=== PATIENT | male | born 1945 | race Caucasian/White ===

== ENCOUNTER 2021-09-24 08:12 | Outpatient (REF) | payer MEDICARE, SELFPAY | END 2021-09-24 08:13 | disposition home or self-care (01) | LOC: HO.HOSX 08:12 | PROVIDERS: Visit Provider Physician Assistant | DX: Z13.89 Encounter for screening for other disorder (principal) ==

== ENCOUNTER → 2021-12-01 10:48 | Outpatient (BNVA) | payer MEDICARE, MEDICAID, SELFPAY | PROVIDERS: PCP Family Medicine; Visit Provider Urology | DX: C61 Malignant neoplasm of prostate (principal); N35.919 Unspecified urethral stricture, male, unspecified site; N40.1 Benign prostatic hyperplasia with lower urinary tract symptoms; N13.8 Other obstructive and reflux uropathy; R33.8 Other retention of urine | CPT/HCPCS: 99212 ==

== ENCOUNTER 2021-12-04 08:41 | Outpatient (REF) | payer MEDICARE, MEDICAID, SELFPAY ==
[2021-12-04 10:09] LABS: Prostate Specific Antigen 0.35 ng/mL (<0.05-4.0)
== END 2021-12-04 08:42 | disposition home or self-care (01) ==
LOC: HO.LAB 08:41
PROVIDERS: PCP Family Medicine; Visit Provider Urology
DX: Z12.5 Encounter for screening for malignant neoplasm of prostate (principal); C61 Malignant neoplasm of prostate
CPT/HCPCS: 36415; 84153

== ENCOUNTER 2022-04-14 07:44 | Outpatient (REF) | payer MEDICARE, OTHER, SELFPAY ==
--- NOTE | ~2022-04-14 | CT_ITS ---
EXAMINATION: CT ABDOMEN AND PELVIS WITH CONTRAST CLINICAL INFORMATION: Unintentional weight loss COMPARISON: Abdominal ultrasound February 2013 TECHNIQUE: Multidetector volumetric images were obtained from the superior aspect of the liver through the pubic symphysis following administration 85 mL of Omnipaque 350 intravenous contrast. Sagittal and coronal reformatted images were obtained on the technologist's workstation. Oral contrast: Yes This CT examination was performed using dose optimization techniques as appropriate, variously including the following: *Automated exposure control *Adjustment of mA and/or kV according to patient size (this includes techniques or standardized protocols for targeted exams where dose is matched to indication/reason for exam; i.e. extremities or head) *Use of iterative reconstruction technique DLP: 579 mGy-cm FINDINGS: LUNG BASES: The visualized lung bases are unremarkable. LIVER, GALLBLADDER, AND BILIARY TREE: The liver is normal in size, shape, and attenuation. No focal hepatic lesion or biliary ductal dilatation is present. There are small gallstones in the gallbladder. PANCREAS: Unremarkable. SPLEEN: Unremarkable. ADRENAL GLANDS: Unremarkable. KIDNEYS AND URETERS: The kidneys are normal in size, shape, and attenuation. Small bilateral peripelvic cysts, left greater than right. Small bilateral cortical cysts. No imaging follow-up recommended. No hydronephrosis, hydroureter, or calculi seen. No perinephric stranding. BLADDER: Unremarkable. GASTROINTESTINAL TRACT: Stool throughout the colon. Very mild diverticulosis. No evidence of diverticulitis. Normal stomach and small bowel. Appendix not seen. ABDOMINAL WALL: Small left inguinal hernia containing fat. LYMPH NODES: Normal. VASCULAR: Unremarkable. PELVIC VISCERA: The prostate gland has been removed. OSSEOUS STRUCTURES: Scoliosis and mild degenerative changes of the spine. Bilateral L5 pars defect. CT/CT abdomen pelvis w IV con IMPRESSION: No acute findings. Stool throughout the colon questionable for constipation. Small gallstone. Bilateral renal cysts. Post prostatectomy. Fleischner guidelines were followed.
--- NOTE | ~2022-04-14 | CT_ITS ---
EXAMINATION: CT CHEST WITH CONTRAST CLINICAL INFORMATION: Unintentional weight loss COMPARISON: Previous chest x-ray October 2017 TECHNIQUE: Multidetector volumetric CT imaging of the chest was obtained after the administration of 85 mL of Omnipaque 350 intravenous contrast without immediate adverse reactions. Axial MIP volume rendering provided. Sagittal and coronal reformatted images were obtained. This CT examination was performed using dose optimization techniques as appropriate, variously including the following: *Automated exposure control *Adjustment of mA and/or kV according to patient size (this includes techniques or standardized protocols for targeted exams where dose is matched to indication/reason for exam; i.e. extremities or head) *Use of iterative reconstruction technique DLP: 141 mGy-cm FINDINGS: LUNGS: There is focal bronchiectasis seen in the right middle lobe. The lungs are otherwise clear. MEDIASTINUM: Normal heart size. Mild coronary artery calcification. No pericardial effusion. Left subclavian pacemaker/AICD leads. Normal caliber thoracic aorta. No enlarged hilar or mediastinal lymph nodes. Normal esophagus. PLEURA: There is no pleural effusion. No pleural mass or thickening. AXILLA: No lymphadenopathy. OSSEOUS STRUCTURES: Degenerative changes of the spine. CT/CT chest w IV con IMPRESSION: Focal bronchiectasis in the right middle lobe. Mild coronary artery calcification. Fleischner guidelines were followed.
[2022-04-14] MEDS: iohexoL 350 MG/ML 100 ML INFUS..BTL IV (10:44)
[2022-04-14] MEDS: Barium Sulfate Oral (Berry) 450 ML ORAL.SUSP 900 ML PO (10:44)
[2022-04-14 14:25] LABS: Creatinine POC 1.4 mg/dL (0.5-1.4); GFR POC 51
== END 2022-04-14 07:45 | disposition home or self-care (01) ==
LOC: HO.CT 07:44
PROVIDERS: Visit Provider Family Medicine
DX: R63.4 Abnormal weight loss (principal)
CPT/HCPCS: 71260; 74177; 82565; Q9967

== ENCOUNTER 2022-07-07 10:03 | Outpatient (REF) | payer MEDICARE, OTHER, SELFPAY ==
--- NOTE | ~2022-07-07 | XR_ITS ---
EXAMINATION: XR CHEST CLINICAL INFORMATION: Focal bronchiectasis right middle lobe. COMPARISON: CT chest 08/12/2022, chest radiographs 11/04/2017 TECHNIQUE: 2 views of the chest were obtained. FINDINGS: There is subtle coarsening interstitial markings mid to peripheral right mid zone corresponding to the area of focal bronchiectasis noted on CT chest 04/14/2022. There is no interval airspace consolidation or groundglass opacity. No fluid levels. No pleural reaction or effusion. The heart is normal in size. There is a bipolar pacemaker. The vascularity is normal. The hilar and mediastinal contours are unremarkable. There are degenerative changes thoracic spine. XR/XR chest 2V IMPRESSION: -No acute intrathoracic disease. -Bipolar pacemaker. Vascularity normal. No effusion. -Mild coarsening right mid zone corresponding to area of bronchiectasis noted on prior CT.
== END 2022-07-07 10:04 | disposition home or self-care (01) ==
LOC: HO.HHCX 10:03
PROVIDERS: Visit Provider Family Medicine
DX: J47.9 Bronchiectasis, uncomplicated (principal)
CPT/HCPCS: 71046

== ENCOUNTER 2022-10-19 10:35 | Outpatient (AMB) | payer MEDICARE, MEDICAID, SELFPAY ==
[2022-10-19 10:53] VITALS: BP 124/60; PULSE 59; O2SAT 98; BMI 26.4
--- NOTE | 2022-10-19 10:53 | MHC.OFFVIS ---
Intake Vital Signs 10/19/22 10:53 Height 5 ft 7 in Weight 168 lb 10.458 oz BMI 26.4 BP 124/60 Blood Pressure Location Lt brachial Position Sitting Pulse 59 Pulse Source Pulse Oximeter Pulse Oximetry (%) 98 Oxygen Delivery Method Room Air Intake Visit Reasons: Bronchiectasis Ammonia Technician Required: No Allergies No Known Allergies Allergy (Verified 10/19/22 10:56) HPI HPI Comments History of Present Illness Details The patient is here for pulmonary evaluation. The patient is a 76-year-old gentleman with a known history of prostate cancer along with significant weight loss. Back in March the patient did have a workup for the significant weight loss with a CT scan of the chest and abdomen. It was noted that he has significant bronchiectatic changes and scarring of the right middle lobe area. Therefore additional laboratory testing was done. Since that initial evaluation back in March he states that he has gained some weight back. He went down to about 144 and now he is up to 168 lb. Clinically the patient feels good denies any significant cough or shortness of breath. As far as exposures she worked in the [employer] for about 24 years. This is in the [place] He was exposed to significant amount of insecticides and pesticides. He also states that he drinks alcohol on daily basis. He is no longer drinking he quit drinking about 2 years ago and has been clean ever since. I did review the CT scan demonstrating the atelectatic area I am bronchiectatic area primarily in the right middle lobe area. The airways appeared to be patent without any endobronchial lesions. On examination he does have some crackles that are fine to the right lower lobe area suggesting some degree of chronicity. Based on the fact the patient clinically feeling well will plan to repeat the CT scan in 6 months along with pulmonary function studies. If the patient develops any symptoms prior to this or worsening symptoms he will call the office for an earlier assessment. [facility] Medical History (Updated 10/19/22 @ 12:04 by Martin Norris MD) Bronchiectasis Chronic renal failure Hepatitis HTN (hypertension) Hyperlipidemia ILD (interstitial lung disease) Prostate cancer Urethral stricture Vitamin B12 deficiency Surgical History History of surgery Social History (Updated 10/19/22 @ 10:57 by SARA Stokes) Patient Tobacco Use Status: Never used Tobacco Review of Systems Const Denies fatigue, Denies fever(s), Denies malaise and Reports weight gain Eyes Denies change in vision ENT Denies neck pain Card Denies chest pain Resp Denies change in phlegm color, Denies chest congestion, Denies cough, Denies hemoptysis, Denies excessive phlegm production, Denies pain on inspiration, Denies pain with cough and Denies wheezing GI Reports no additional complaints Musc Reports no additional complaints and Denies neck pain Skin/Breast Denies rash Neuro Reports no additional complaints Endo Denies fatigue Jesus Alberto/Lymph Denies easy bleeding and Denies lymphadenopathy Aller/Immun Denies wheezing Physical Exam Vital Signs: Last Vital Signs Pulse 59 10/19/22 10:53 BP 124/60 10/19/22 10:53 Pulse Ox 98 10/19/22 10:53 Oxygen Delivery Method Room Air 10/19/22 10:53 BMI result Body Mass Index 26.4 Const General: comfortable HEENT Head: Yes normocephalic Neck Neck: Yes supple Chest Chest palpation & inspection: normal inspection of the chest Resp Effort & Inspection: normal respiratory effort Auscultation: rales on the right at the base Cardio Rate: regular rate Rhythm: regular rhythm Heart sounds: S1 normal heart sound present and S2 normal heart sound present GI Palpation (GI): Soft to palpation Skin General skin exam: no rashes or lesions noted Extrem General: Yes no clubbing, cyanosis or edema Assessment & Plan Assessment & Plan (1) Bronchiectasis: Code(s): J47.9 - Bronchiectasis, uncomplicated (2) ILD (interstitial lung disease): Code(s): J84.9 - Interstitial pulmonary disease, unspecified Plan PFTs in [address] chest in 6 months F/U in 6 months Orders: Orders CT chest wo IV con 6 Months J47.9 - Bronchiectasis, uncomplicated, J84.9 - Interstitial pulmonary disease, unspecified PFT pulmonary function test 6 Months J84.9 - Interstitial pulmonary disease, unspecified Coding Level of Care Code New Pt Level 4 (02025) Diagnoses Bronchiectasis J47.9 ILD (interstitial lung disease) J84.9 Time Spent (min) 35
== END 2022-10-19 11:17 | disposition home or self-care (01) ==
PROVIDERS: PCP Family Medicine; Visit Provider Hospitalist
DX: J47.9 Bronchiectasis, uncomplicated (principal); J84.9 Interstitial pulmonary disease, unspecified
CPT/HCPCS: 99204

== ENCOUNTER → 2022-10-19 10:35 | Outpatient (BNVA) | payer MEDICARE, OTHER, SELFPAY | PROVIDERS: PCP Family Medicine; Visit Provider Hospitalist | DX: J47.9 Bronchiectasis, uncomplicated (principal); J84.9 Interstitial pulmonary disease, unspecified | CPT/HCPCS: 99202 ==

== ENCOUNTER 2023-01-03 09:14 | Outpatient (REF) | payer MEDICARE, MEDICAID, SELFPAY | END 2023-01-03 09:15 | disposition home or self-care (01) | LOC: HO.LAB 09:14 | PROVIDERS: PCP Family Medicine; Visit Provider Nurse Practitioner Family | DX: C61 Malignant neoplasm of prostate (principal); Z12.5 Encounter for screening for malignant neoplasm of prostate | CPT/HCPCS: 36415; 84153 ==

== ENCOUNTER 2023-01-11 10:14 | Outpatient (AMB) | payer MEDICARE, MEDICAID, SELFPAY ==
--- NOTE | 2023-01-11 10:28 | A.OFFVIS_ITS ---
Intake Intake Visit Reasons: yearly follow up/PSA Intake Note: Patient presents for Hx of Prostate cancer/PSA lab (psa 0.40) Urology Medications: finasteride Blood Thinners: Aspirin, Apixaban (Eliquis) Rubber Boots And Shoes Repairer Required: Yes Rubber Boots And Shoes Repairer Name: [id number] Accompanied by: Self / Same As Patient Allergies No Known Allergies Allergy (Verified 01/11/23 11:12) Medication List - Last Reconciled 01/11/23 by SEJAL AguilarP- amlodipine 10 mg PO DAILY apixaban (Eliquis) 5 mg PO BID aspirin 81 mg PO DAILY atorvastatin 20 mg PO BEDTIME cholecalciferol (vitamin D3) 25 mcg PO DAILY cyanocobalamin (vitamin B-12) 1,000 mcg PO DAILY diclofenac sodium 1% 2 grams topical BID PRN ferrous sulfate 325 mg PO DAILY finasteride 5 mg PO DAILY 90 days lisinopril 40 mg PO DAILY timolol maleate 0.5% 1 drp ophthalmic (eye) QAM HPI HPI Comments History of Present Illness Details Tomi is a very pleasant Macedonian speaking male patient of Dr. Bobby. He has a PMH of interstitial lung disease, vitamin b12 deficiency, chronic renal failure, hepatitis, hypertension, and hyperlipidemia. He presents to the office today for a follow up of his prostate cancer and urethral stricture s/p [id number]. When asked patient reports to be doing and feeling well. He denies any issues with his urination. Recent PSA results reviewed with the patient today 01/20--0.4. When asked he reports to have stopped Finasteride as he did not have any more refills. In office urinalysis results reviewed with the patient today. When asked he denies urinary urgency, urinary frequency, incontinence, nocturia, hematuria, dysuria, foul smelling urine, changes to urinary stream, flank pain, fever, and or chills. He is happy with his current voiding parameters. He otherwise denies any bothersome urinary issues or concerns at this time. Prostate cancer diagnosed 2007 low-grade ? Good response to prior finasteride ?If PSA to rise would then again consider radiation. ? Prostate cancer was diagnosed?2007. Low-grade, low stage D'Shara criteria..? The Dennise grade is?3+3.? TNM Classification of Malignant Tumours (TNM)?T1c.? Initial therapy included?Radical prostatectomy .? Recent labs included?07/16 0.2 ?11/16 0.15, 03/19 0.1, 12/19 0.4, 01/20--0.4 ? Current symptoms include?none PFSH Medical History ILD (interstitial lung disease) Bronchiectasis Vitamin B12 deficiency Chronic renal failure Hepatitis HTN (hypertension) Hyperlipidemia Urethral stricture Prostate cancer Surgical History History of surgery Social History Patient Tobacco Use Status: Never used Tobacco Review of Systems Const All systems reviewed & are unremarkable except as noted in HPI and below Eyes Reports no additional complaints ENT Reports no additional complaints Card Reports as per HPI Resp Reports as per HPI GI Reports no additional complaints Reports as per HPI Musc Reports no additional complaints Neuro Reports no additional complaints Psych Reports no additional complaints Endo Reports no additional complaints Jesus Alberto/Lymph Reports no additional complaints Aller/Immun Reports no additional complaints Physical Exam Const General: cooperative, healthy appearing, comfortable, no acute distress, well developed, alert and awake Orientation/consciousness: patient oriented x3 Limitations: no limitations HEENT Head: Yes normal to inspection, Yes normocephalic and Yes atraumatic Ears: hearing grossly normal bilaterally Eyes General: appearance normal, both eyes and all related structures Neck Neck: Yes normal visual inspection and Yes trachea midline Chest Chest palpation & inspection: normal inspection of the chest Resp Effort & Inspection: normal respiratory effort and able to speak in complete sentences Cardio Rate: regular rate GI Inspection: Yes normal to inspection General: Yes no CVA tenderness Back/Spine/Pelvis Back: no CVA tenderness Skin General skin exam: no rashes or lesions noted Neuro General: patient oriented x3 Extrem General: Yes normal to inspection Psych Appearance: grossly normal and well kempt Mental Status: mental status grossly normal Speech and movement: Normal speech and movement present and Clear speech present Affect: normal affect Attitude: cooperative Thought process: Normal thought process present Thought content: Normal thought content present Insight: Fair insight present (Psych) Judgement: Fair judgement present (Psych) Results AMB Urinalysis, Automated UA Leukoctes 0 Alvaro/uL Last Edit by Lolita Alcaraz on 01/11/23 10:40 UA Nitrite Negative Last Edit by Lolita Alcaraz on 01/11/23 10:40 UA Urobilinogen 0.2 mg/dL Last Edit by Lolita Alcaraz on 01/11/23 10:40 UA Protein 0 mg/dL Last Edit by Lolita Alcaraz on 01/11/23 10:40 UA pH 5.5 Last Edit by Lolita Alcaraz on 01/11/23 10:40 UA Blood 0 Rolf/uL Last Edit by Lolita Alcaraz on 01/11/23 10:40 UA Specific [place] 1.025 Last Edit by Lolita Alcaraz on 01/11/23 10:40 UA Ketone Negative Last Edit by Lolita Alcaraz on 01/11/23 10:40 UA Bilirubin 0 mg/dL Last Edit by Lolita Alcaraz on 01/11/23 10:40 UA Glucose 0 mg/dL Last Edit by Lolita Alcaraz on 01/11/23 10:40 Results Reviewed Results Reviewed: Laboratory Last Values Urine pH (Auto) 5.5 01/11/23 10:34 Specific [place] (Auto) 1.025 01/11/23 10:34 Urine Protein (Auto) 0 mg/dL 01/11/23 10:34 Glucose (UA)(Auto) 0 mg/dL 01/11/23 10:34 Urine Ketones (Auto) Negative 01/11/23 10:34 Urine Blood (Auto) 0 Rolf/uL 01/11/23 10:34 Urine Nitrite (Auto) Negative 01/11/23 10:34 Urine Bilirubin (Auto) 0 mg/dL 01/11/23 10:34 Urine Urobilinogen (Auto) 0.2 mg/dL 01/11/23 10:34 Leukocyte Esterase (Auto) 0 Alvaro/uL 01/11/23 10:34 Assessment & Plan Assessment & Plan (1) Prostate cancer: Code(s): C61 - Malignant neoplasm of prostate (2) Urethral stricture: Code(s): N35.919 - Unspecified urethral stricture, male, unspecified site (3) Rising PSA following treatment for malignant neoplasm of prostate: Code(s): R97.21 - Rising PSA following treatment for malignant neoplasm of prostate Plan In office urinalysis results reviewed with the patient today; as noted above. Recent PSA results reviewed with the patient today; as noted above. Discussed slight increase in PSA Refill provided on finasteride Continue finasteride as discussed and prescribed. Patient denies any bothersome urinary issues or concerns at this time. Patient reports to be happy with current voiding parameters. PSA in 4months. Follow-up in 4 months with lab to be completed prior; or sooner with any issues, concerns, and or questions. Orders: Orders AMB Urinalysis Automated Today Z13.9 - Encounter for screening, unspecified Prostate Specific Antigen 6 Months C61 - Malignant neoplasm of prostate Prostate Specific Antigen 01/03/23 C61 - Malignant neoplasm of prostate Medications: Refilled finasteride 5 mg PO DAILY 90 days 90 tabs 3RF C61 - Malignant neoplasm of prostate, N13.8 - Other obstructive and reflux uropathy, N40.1 - Benign prostatic hyperplasia with lower urinary tract symptoms, R33.9 - Retention of urine, unspecified Patient Instructions: The patient had an opportunity to ask questions regarding the treatment plan. All questions were answered. Physical exam, labs, and imaging were discussed and reviewed in detail. As well as risks, benefits, and discussion of treatment choices. No major barriers to understanding were identified. The patient expressed understanding and agreement with the above treatment plan. The patient was made aware they should contact our office by phone for worsening of their current condition, the appearance of new symptoms, or with any questions or concerns. Compliance is encouraged with any medications and follow up testing that is ordered. It is a privilege to be allowed the opportunity to participate in? your urological care.? Again, if you have any questions or concerns If you have any questions or concerns please do not hesitate to contact me. The office is [phone]. This note is constructed using voice recognition software. While every effort has been made to ensure accuracy flooring machine feeder errors may have been included. Yours sincerely, SHAZIA Aguilar Coding Level of Care Code Est Pt Level 4 (64183) Diagnoses Prostate cancer C61 Urethral stricture N35.919 Rising PSA following treatment for malignant neoplasm of prostate R97.21 Time Spent (min) 35
== END 2023-01-11 11:03 | disposition home or self-care (01) ==
PROVIDERS: Visit Provider Nurse Practitioner Family
DX: C61 Malignant neoplasm of prostate (principal); N35.919 Unspecified urethral stricture, male, unspecified site; R97.21 Rising PSA following treatment for malignant neoplasm of prostate; Z13.9 Encounter for screening, unspecified
CPT/HCPCS: 99214

== ENCOUNTER → 2023-01-11 10:14 | Outpatient (BNVA) | payer MEDICARE, MEDICAID, SELFPAY | PROVIDERS: Visit Provider Nurse Practitioner Family | DX: C61 Malignant neoplasm of prostate (principal); N35.919 Unspecified urethral stricture, male, unspecified site; R97.21 Rising PSA following treatment for malignant neoplasm of prostate | CPT/HCPCS: 81003; 99212 ==

== ENCOUNTER 2023-04-21 11:31 | Outpatient (REF) | payer OTHER, SELFPAY | END 2023-04-21 11:32 | disposition home or self-care (01) | LOC: HO.HOSX 11:31 | PROVIDERS: Visit Provider Orthopaedic Surgery | DX: Z13.89 Encounter for screening for other disorder (principal) ==

== ENCOUNTER 2023-05-13 09:15 | Outpatient (REF) | payer OTHER, SELFPAY ==
[2023-05-13 11:03] LABS: Prostate Specific Antigen 0.28 ng/mL (<0.05-4.0)
== END 2023-05-13 09:16 | disposition home or self-care (01) ==
LOC: HO.LAB 09:15
PROVIDERS: PCP Family Medicine; Visit Provider Nurse Practitioner Family
DX: C61 Malignant neoplasm of prostate (principal); Z12.5 Encounter for screening for malignant neoplasm of prostate
CPT/HCPCS: 36415; 84153

== ENCOUNTER 2023-05-19 13:19 | Outpatient (AMB) | payer OTHER, SELFPAY ==
--- NOTE | 2023-05-19 13:56 | MHC.OFFVIS ---
Intake Intake Visit Reasons: F/U, 6 mth. PSA Intake Note: Patient presents for follow up Hx of Prostate cancer/PSA lab PSA: 0.28 Urology Medications: finasteride Blood Thinners: Aspirin, Apixaban (Eliquis) Agricultural Inspector Required: Yes Agricultural Inspector Name: ZACK LLAMAS Accompanied by: Self / Same As Patient Allergies No Known Allergies Allergy (Verified 05/19/23 14:32) Medication List - Last Reconciled 05/19/23 by RAJ Aguilar- amlodipine 10 mg PO DAILY apixaban (Eliquis) 5 mg PO BID aspirin 81 mg PO DAILY atorvastatin 20 mg PO BEDTIME cholecalciferol (vitamin D3) 25 mcg PO DAILY cyanocobalamin (vitamin B-12) 1,000 mcg PO DAILY diclofenac sodium 1% 2 grams topical BID PRN dorzolamide 2% drps ophthalmic (eye) ferrous sulfate 325 mg PO DAILY finasteride 5 mg PO DAILY 90 days lisinopril 40 mg PO DAILY timolol maleate 0.5% 1 drp ophthalmic (eye) QAM HPI HPI Comments History of Present Illness Details Tomi is a very pleasant Kiswahili speaking male patient of Dr. Bobby who was accompanied by his significant other at today's office visit. He has a PMH of interstitial lung disease, vitamin b12 deficiency, chronic renal failure, hepatitis, hypertension, and hyperlipidemia. He presents to the office today for a follow up of his prostate cancer and urethral stricture s/p DVIU 2008. When asked patient reports to be doing and feeling well. He denies any issues with his urination. Recent PSA results reviewed with the patient today 05/21--0.3. When asked he reports compliance with finasteride 5 mg daily as prescribed. In office urinalysis results reviewed with the patient today. When asked he denies urinary urgency, urinary frequency, incontinence, nocturia, hematuria, dysuria, foul smelling urine, changes to urinary stream, flank pain, fever, and or chills. He is happy with his current voiding parameters. He otherwise denies any bothersome urinary issues or concerns at this time. Prostate cancer diagnosed 2007 low-grade ? Good response to prior finasteride ?If PSA to rise would then again consider radiation. ? Prostate cancer was diagnosed?2007. Low-grade, low stage D'Shara criteria..? The [place] grade is?3+3.? TNM Classification of Malignant Tumours (TNM)?T1c.? Initial therapy included?Radical prostatectomy .? Recent labs included?07/16 0.2 ?11/16 0.15, 03/19 0.1, 12/19 0.4, 01/20--0.4, 05/21--0.3 ? Current symptoms include?none PFSH Medical History ILD (interstitial lung disease) Bronchiectasis Vitamin B12 deficiency Chronic renal failure Hepatitis HTN (hypertension) Hyperlipidemia Urethral stricture Prostate cancer Surgical History History of surgery Social History Patient Tobacco Use Status: Never used Tobacco Review of Systems Const All systems reviewed & are unremarkable except as noted in HPI and below Eyes Reports no additional complaints ENT Reports no additional complaints Card Reports as per HPI Resp Reports as per HPI GI Reports no additional complaints Reports as per HPI Musc Reports no additional complaints Neuro Reports no additional complaints Psych Reports no additional complaints Endo Reports no additional complaints Jesus Alberto/Lymph Reports no additional complaints Aller/Immun Reports no additional complaints Physical Exam Const General: cooperative, healthy appearing, comfortable, no acute distress, well developed, alert and awake Orientation/consciousness: patient oriented x3 Limitations: no limitations HEENT Head: Yes normal to inspection, Yes normocephalic and Yes atraumatic Ears: hearing grossly normal bilaterally Eyes General: appearance normal, both eyes and all related structures Neck Neck: Yes normal visual inspection and Yes trachea midline Chest Chest palpation & inspection: normal inspection of the chest Resp Effort & Inspection: normal respiratory effort and able to speak in complete sentences Cardio Rate: regular rate GI Inspection: Yes normal to inspection General: Yes no CVA tenderness Back/Spine/Pelvis Back: no CVA tenderness Skin General skin exam: no rashes or lesions noted Neuro General: patient oriented x3 Extrem General: Yes normal to inspection Psych Appearance: grossly normal and well kempt Mental Status: mental status grossly normal Speech and movement: Normal speech and movement present and Clear speech present Affect: normal affect Attitude: cooperative Thought process: Normal thought process present Thought content: Normal thought content present Insight: Fair insight present (Psych) Judgement: Fair judgement present (Psych) Results AMB Urinalysis, Automated UA Leukoctes 0 Alvaro/uL Last Edit by [employer] on 05/19/23 14:22 UA Nitrite Negative Last Edit by [employer] on 05/19/23 14:22 UA Urobilinogen 0.2 mg/dL Last Edit by [employer] on 05/19/23 14:22 UA Protein 15 mg/dL Last Edit by [employer] on 05/19/23 14:22 UA pH 5.5 Last Edit by [employer] on 05/19/23 14:22 UA Blood 0 Rolf/uL Last Edit by [employer] on 05/19/23 14:22 UA Specific [place] 1.015 Last Edit by [employer] on 05/19/23 14:22 UA Ketone Negative Last Edit by [employer] on 05/19/23 14:22 UA Bilirubin 0 mg/dL Last Edit by [employer] on 05/19/23 14:22 UA Glucose 0 mg/dL Last Edit by [employer] on 05/19/23 14:22 Results Reviewed Results Reviewed: Laboratory Last Values Urine pH (Auto) 5.5 05/19/23 14:02 Specific [place] (Auto) 1.015 05/19/23 14:02 Urine Protein (Auto) 15 mg/dL 05/19/23 14:02 Glucose (UA)(Auto) 0 mg/dL 05/19/23 14:02 Urine Ketones (Auto) Negative 05/19/23 14:02 Urine Blood (Auto) 0 Rolf/uL 05/19/23 14:02 Urine Nitrite (Auto) Negative 05/19/23 14:02 Urine Bilirubin (Auto) 0 mg/dL 05/19/23 14:02 Urine Urobilinogen (Auto) 0.2 mg/dL 05/19/23 14:02 Leukocyte Esterase (Auto) 0 Alvaro/uL 05/19/23 14:02 Assessment & Plan Assessment & Plan (1) Prostate cancer: Code(s): C61 - Malignant neoplasm of prostate (2) Urethral stricture: Code(s): N35.919 - Unspecified urethral stricture, male, unspecified site (3) Rising PSA following treatment for malignant neoplasm of prostate: Code(s): R97.21 - Rising PSA following treatment for malignant neoplasm of prostate Plan In office urinalysis results reviewed with the patient today; as noted above. Recent PSA results reviewed with the patient today; as noted above. Continue finasteride as discussed and prescribed. Patient denies any bothersome urinary issues or concerns at this time. Patient reports to be happy with current voiding parameters. PSA in 6 months. Follow-up in 6 months with lab to be completed prior; or sooner with any issues, concerns, and or questions. Orders: Orders AMB Urinalysis Automated Today Z13.9 - Encounter for screening, unspecified Prostate Specific Antigen 6 Months C61 - Malignant neoplasm of prostate Patient Instructions: The patient had an opportunity to ask questions regarding the treatment plan. All questions were answered. Physical exam, labs, and imaging were discussed and reviewed in detail. As well as risks, benefits, and discussion of treatment choices. No major barriers to understanding were identified. The patient expressed understanding and agreement with the above treatment plan. The patient was made aware they should contact our office by phone for worsening of their current condition, the appearance of new symptoms, or with any questions or concerns. Compliance is encouraged with any medications and follow up testing that is ordered. It is a privilege to be allowed the opportunity to participate in? your urological care.? Again, if you have any questions or concerns If you have any questions or concerns please do not hesitate to contact me. The office is [phone]. This note is constructed using voice recognition software. While every effort has been made to ensure accuracy customer service specialist errors may have been included. Yours sincerely, SHAZIA Aguilar Coding Level of Care Code Est Pt Level 3 (68501) Diagnoses Prostate cancer C61 Urethral stricture N35.919 Rising PSA following treatment for malignant neoplasm of prostate R97.21
== END 2023-05-19 14:48 | disposition home or self-care (01) ==
PROVIDERS: PCP Family Medicine; Visit Provider Nurse Practitioner Family
DX: C61 Malignant neoplasm of prostate (principal); N35.919 Unspecified urethral stricture, male, unspecified site; R97.21 Rising PSA following treatment for malignant neoplasm of prostate
CPT/HCPCS: 99213

== ENCOUNTER → 2023-05-19 13:19 | Outpatient (BNVA) | payer OTHER, SELFPAY | PROVIDERS: PCP Family Medicine; Visit Provider Nurse Practitioner Family | DX: N35.919 Unspecified urethral stricture, male, unspecified site (principal); R97.21 Rising PSA following treatment for malignant neoplasm of prostate; I12.9 Hypertensive chronic kidney disease with stage 1 through stage 4 chronic kidney disease, or unspecified chronic kidney disease; N18.9 Chronic kidney disease, unspecified; Z85.46 Personal history of malignant neoplasm of prostate; Z79.899 Other long term (current) drug therapy | CPT/HCPCS: 81003; 99212 ==

== ENCOUNTER 2023-09-05 09:06 | Outpatient (REF) | payer MEDICARE, SELFPAY ==
[2023-09-05 15:30] LABS: Prostate Specific Antigen 0.33 ng/mL (<0.05-4.0)
== END 2023-09-05 09:07 | disposition home or self-care (01) ==
LOC: HO.HHCL 09:06
PROVIDERS: Visit Provider Nurse Practitioner Family
DX: C61 Malignant neoplasm of prostate (principal); Z12.5 Encounter for screening for malignant neoplasm of prostate
CPT/HCPCS: 36415; 84153

== ENCOUNTER 2023-12-26 10:35 | Outpatient (AMB) | payer OTHER, SELFPAY ==
--- NOTE | 2023-12-26 10:45 | A.OFFVIS_ITS ---
Intake Visit Reasons: 6 month follow up/ PSA Intake Note: Patient presents today for follow up on: hx of prostate cancer and psa lab results PSA: 0.33 Urology Medications: finasteride Blood Thinners: Aspirin, Apixaban (Eliquis) Cashier Wrapper Required: Yes Cashier Wrapper Name: [id number] Accompanied by: Self / Same As Patient Allergies No Known Allergies Allergy (Verified 12/26/23 11:09) Medication List - Last Reconciled 12/26/23 by RAJ Aguilar- amlodipine 10 mg PO DAILY apixaban (Eliquis) 5 mg PO BID aspirin 81 mg PO DAILY atorvastatin 20 mg PO BEDTIME cholecalciferol (vitamin D3) 25 mcg PO DAILY cyanocobalamin (vitamin B-12) 1,000 mcg PO DAILY diclofenac sodium 1% 2 grams topical BID PRN dorzolamide 2% drps ophthalmic (eye) ferrous sulfate 325 mg PO DAILY finasteride 5 mg PO DAILY 90 days lisinopril 40 mg PO DAILY timolol maleate 0.5% 1 drp ophthalmic (eye) QAM HPI Comments Details: Tomi is a very pleasant Surinamese speaking male patient of Dr. Bobby who was acc ompanied by his significant other at today's office visit. He has a PMH of interstitial lung disease, vitamin b12 deficiency, chronic renal failure, hepatitis, hypertension, and hyperlipidemia. He presents to the office today for a follow up of his prostate cancer and urethral stricture s/p DVIU 2008. When asked patient reports to be doing and feeling well. He denies any bothersome urinary issues or concerns. He does report noting episodes of nocturia up to 2 times per night however does not find them bothersome. Recent PSA results reviewed with the patient today as noted and trended below. He reports compliance with finasteride 3 times per week as prescribed. In office urinalysis results reviewed with the patient today. When asked he denies urinary urgency, urinary frequency, incontinence, nocturia, hematuria, dysuria, foul smelling urine, changes to urinary stream, flank pain, fever, and or chills. He is happy with his current voiding parameters. He otherwise denies any bothersome urinary issues or concerns at this time. Prostate cancer diagnosed 2007 low-grade ? Good response to prior finasteride ?If PSA to rise would then again consider radiation. ? Prostate cancer was diagnosed?2007. Low-grade, low stage D'Shara criteria..? The [place] grade is?3+3.? TNM Classification of Malignant Tumours (TNM)?T1c.? Initial therapy included?Radical prostatectomy .? Recent labs included?07/16 0.2 ?11/16 0.15, 03/19 0.1, 12/19 0.4, 01/20 0.4, 05/21 0.3, 09/20 0.3 ? Current symptoms include?none PFSH Medical History ILD (interstitial lung disease) Bronchiectasis Vitamin B12 deficiency Chronic renal failure Hepatitis HTN (hypertension) Hyperlipidemia Urethral stricture Prostate cancer Surgical History History of surgery Social History Patient Tobacco Use Status: Never used Tobacco Review of Systems Const All systems reviewed & are unremarkable except as noted in HPI and below Eyes Reports no additional complaints ENT Reports no additional complaints Card Reports as per HPI Resp Reports as per HPI GI Reports no additional complaints Reports as per HPI Musc Reports no additional complaints Neuro Reports no additional complaints Psych Reports no additional complaints Endo Reports no additional complaints Jesus Alberto/Lymph Reports no additional complaints Aller/Immun Reports no additional complaints Physical Exam Const General: cooperative, healthy appearing, comfortable, no acute distress, well developed, alert and awake Orientation/consciousness: patient oriented x3 Limitations: no limitations HEENT Head: Yes normal to inspection, Yes normocephalic and Yes atraumatic Ears: hearing grossly normal bilaterally Eyes General: appearance normal, both eyes and all related structures Neck Neck: Yes normal visual inspection and Yes trachea midline Chest Chest palpation & inspection: normal inspection of the chest Resp Effort & Inspection: normal respiratory effort and able to speak in complete sentences Cardio Rate: regular rate GI Inspection: Yes normal to inspection General: Yes no CVA tenderness Back/Spine/Pelvis Back: no CVA tenderness Skin General skin exam: no rashes or lesions noted Neuro General: patient oriented x3 Extrem General: Yes normal to inspection Psych Appearance: grossly normal and well kempt Mental Status: mental status grossly normal Speech and movement: Normal speech and movement present and Clear speech present Affect: normal affect Attitude: cooperative Thought process: Normal thought process present Thought content: Normal thought content present Insight: Fair insight present (Psych) Judgement: Fair judgement present (Psych) Results AMB Urinalysis, Automated UA Leukoctes 0 Alvaro/uL Last Edit by [employer] on 12/26/23 10:56 UA Nitrite Last Edit by [employer] on 12/26/23 10:56 UA Urobilinogen 0.2 mg/dL Last Edit by [employer] on 12/26/23 10:56 UA Protein 0 mg/dL Last Edit by [employer] on 12/26/23 10:56 UA pH 6.0 Last Edit by [employer] on 12/26/23 10:56 UA Blood 0 Rolf/uL Last Edit by [employer] on 12/26/23 10:56 UA Specific [place] 1.020 Last Edit by [employer] on 12/26/23 10:56 UA Ketone Last Edit by [employer] on 12/26/23 10:56 UA Bilirubin 0 mg/dL Last Edit by [employer] on 12/26/23 10:56 UA Glucose 0 mg/dL Last Edit by [employer] on 12/26/23 10:56 Results Reviewed Results Reviewed: Laboratory Last Values Urine pH (Auto) 6.0 12/26/23 10:55 Specific [place] (Auto) 1.020 12/26/23 10:55 Urine Protein (Auto) 0 mg/dL 12/26/23 10:55 Glucose (UA)(Auto) 0 mg/dL 12/26/23 10:55 Urine Blood (Auto) 0 Rolf/uL 12/26/23 10:55 Urine Bilirubin (Auto) 0 mg/dL 12/26/23 10:55 Urine Urobilinogen (Auto) 0.2 mg/dL 12/26/23 10:55 Leukocyte Esterase (Auto) 0 Alvaro/uL 12/26/23 10:55 Assessment & Plan Assessment & Plan (1) Prostate cancer: Code(s): C61 - Malignant neoplasm of prostate Category: Medical Plan In office urinalysis results reviewed with the patient today; as noted above. Recent PSA results reviewed with the patient today; as noted above. Discussed continuation of surveillance monitoring Patient currently denies any bothersome urinary issues or concerns. He reports be happy with current voiding parameters. Continue finasteride as prescribed. Patient reports be happy with current voiding parameters. Follow-up in 6 months with PSA and PVR; or sooner with any issues, concerns, and or questions. Orders: Orders AMB Urinalysis Automated Today Z13.9 - Encounter for screening, unspecified Prostate Specific Antigen 6 Months C61 - Malignant neoplasm of prostate, N35.919 - Unspecified urethral stricture, male, unspecified site Patient Instructions: The patient had an opportunity to ask questions regarding the treatment plan. All questions were answered. Physical exam, labs, and imaging were discussed and reviewed in detail. As well as risks, benefits, and discussion of treatment choices. No major barriers to understanding were identified. The patient expressed understanding and agreement with the above treatment plan. The patient was made aware they should contact our office by phone for worsening of their current condition, the appearance of new symptoms, or with any q uestions or concerns. Compliance is encouraged with any medications and follow up testing that is ordered. It is a privilege to be allowed the opportunity to participate in? your urological care.? Again, if you have any questions or concerns If you have any questions or concerns please do not hesitate to contact me. The office is [phone]. This note is constructed using voice recognition software. While every effort has been made to ensure accuracy mysql developer errors may have been included. Yours sincerely, SHAZIA Aguilar Coding Level of Care Code Est Pt Level 3 (16837) Complex EM visit Add On G2211 Diagnoses Prostate cancer C61
== END 2023-12-26 11:09 | disposition home or self-care (01) ==
PROVIDERS: PCP Family Medicine; Visit Provider Nurse Practitioner Family
DX: C61 Malignant neoplasm of prostate (principal); Z13.9 Encounter for screening, unspecified
CPT/HCPCS: 99213; G2211

== ENCOUNTER → 2023-12-26 10:35 | Outpatient (BNVA) | payer OTHER, SELFPAY | PROVIDERS: PCP Family Medicine; Visit Provider Nurse Practitioner Family | DX: C61 Malignant neoplasm of prostate (principal); N35.919 Unspecified urethral stricture, male, unspecified site | CPT/HCPCS: 81003; 99212 ==

== ENCOUNTER 2024-05-09 09:50 | Outpatient (REF) | payer MEDICAID, SELFPAY ==
--- OUTSIDE RECORDS SUMMARY | 2024-05-09 10:57 | XMS_ITS | Encounter Summary ---
Author Organization [facility] Address [address] 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 Name Role Phone Kathryn Bobby DO Primary Care Provider Encounter Details Date Type Department Care Team (Late st Contact Info) Description 04/01/2022 Orders Only [facility] MEDICINE [address] [place] [address] Kathryn Bobby DO [address] [place], [place] [phone] Unintentional weight loss (Primary Dx) Social History Tobacco Use Types Packs/Day Years Used Date Smoking Tobacco: Never Passive Smoke Exposure: Never Alcohol Use Standard Drinks/Week Comments Never 0 (1 standard drink = 0.6 oz pur e alcohol) Sex and Gender Information Value Date Recorded Sex Assigned at Male 12/28/2021 10:19 AM EDT Legal Sex Male 10:19 AM EDT Gender Identity Male 12/28/2021 10:19 AM EDT Sexual Orientation Straight 12/28/2021 10 :19 AM EDT COVID-19 Exposure Response Date Recorded In the last 10 days, have yo u been in contact with someone who was confirmed or suspected to have Coronavirus/COVID-19? No / Unsure 03/16/2022 9:29 AM EST documented as of this encounter Plan of Treatment Upcoming Encounters Date Type Department Care Team (Late Contact Info) Description 06/15/2024 2:30 PM EDT Office Visit [facility] OPTOMETRY [address] [place], [place] [phone] [place] elias, OD [address] [place], [place] [phone] Scheduled Orders Name Type Priority Associated Diagnoses Orde r Schedule CT Chest w/ Contrast Imaging STAT Unintentional weight loss Expected: 04/01/2022, Expires: 04/01/2023 CT Abdomen Pelvis w/ Contrast Imaging STAT Unintentional weight loss Expected: 04/01/2022, Expires: 04/01/2023 documented as of this encounter Procedures Procedure Name Priority Date/Time Associated Diagnosis Comments CT ABDOMEN PELVIS W CONTRAST Routine 04/14/2022 10:[address] CHEST W CONTRAST Routine 04/14/2022 1 0:41 AM EST POCT CREATININE GFR Routine 04/14/2022 1 0:04 AM EST Unintentional weight loss documented in this encounter Results * CT Abdomen Pelvis w/ Contrast (04/14/2022 10:41 AM EST) Anatomical Region Laterality Modality Body, Pelvis, Abdomen Computed T omography 04/14/2022 10:4 1 AM EST Narrative 04/19/2022 8:09 AM EST ? [facility] ?[address] ?[place] [address] ? CT Scan Report ? Signed ? Patient: Tomi Jansen ?MR#: [id number] ?? 0 ? : 1945 ?Acct:[id number] ? Age/Sex: 76 / M ?ADM Date: 04/14/22 ? Loc: HO.CT ? Attending Dr: Kathryn Bobby DO ? Ordering Physician: Kathryn Bobby DO ?? Date of Service: 04/14/22 ?? Procedure(s): CT abdomen pelvis w IV con ?? Accession Number(s): [id number] ? cc: Kathryn Bobby DO ? EXAMINATION: ?? CT ABDOMEN AND PELVIS WITH CONTRAST ? CLINICAL INFORMATION: ?? Unintentional weight loss ? COMPARISON: ?? Abdominal ultrasound February 2013 ? TECHNIQUE: ?? Multidetector volumetric images were obtained from the superior aspect ?? of the liver through the pubic symphysis following administration 85 mL ?? of Omnipaque 350 intravenous contrast. Sagittal and coronal reformatted ?? images were obtained on the technologist's workstation. ? Oral contrast: Yes ? This CT examination was performed using dose optimization techniques as ?? appropriate, variously including the following: ?? *Automated exposure control ?? *Adjustment of mA and/or kV according to patient size (this includes ?? techniques or standardized protocols for targeted exams where dose is ?? matched to indication/reason for exam; i.e. extremities or head) ?? *Use of iterative reconstruction technique ? DLP: ?? 579 mGy-cm ? FINDINGS: ?? LUNG BASES: The visualized lung bases are unremarkable. ? LIVER, GALLBLADDER, AND BILIARY TREE: The liver is normal in size, ?? shape, and attenuation. No focal hepatic lesion or biliary ductal ?? dilatation is present. There are small gallstones in the gallbladder. ? PANCREAS: Unremarkable. ? SPLEEN: Unremarkable. ? ADRENAL GLANDS: Unremarkable. ? KIDNEYS AND URETERS: The kidneys are normal in size, shape, and ?? attenuation. Small bilateral peripelvic cysts, left greater than right. ?? Small bilateral cortical cysts. No imaging follow-up recommended. No ?? hydronephrosis, hydroureter, or calculi seen. No perinephric stranding. ? BLADDER: Unremarkable. ? GASTROINTESTINAL TRACT: Stool throughout the colon. Very mild ?? diverticulosis. No evidence of diverticulitis. Normal stomach and small ?? bowel. Appendix not seen. ? ABDOMINAL WALL: Small left inguinal hernia containing fat. ? LYMPH NODES: Normal. ? VASCULAR: Unremarkable. ? PELVIC VISCERA: The prostate gland has been removed. ? OSSEOUS STRUCTURES: Scoliosis and mild degenerative changes of the ?? spine. Bilateral L5 pars defect. ? CT/CT abdomen pelvis w IV con ?? IMPRESSION: ?? No acute findings. Stool throughout the colon questionable for ?? constipation. Small gallstone. Bilateral renal cysts. Post ?? prostatectomy. ? Fleischner guidelines were followed. ? Dictated By: ?Gabrielle Figueredo MD ? Signed By: ?<Electronically signed by Gabrielle Figueredo MD in OV> ? 04/19/22 08 ? DD/ ? TD/TT: ? Strawhat Inspector And Packer: SUJ ? Procedure Note Donotuseinterpreter, Image - 04/19/[address] [address] [address] Scan Report Signed Patient: Belen Jansen#: [id number] 0 : 5Acct:[id number] Age/Sex: 76 / MADM Date: 04/14/22 Loc: HO.CT Attending Dr: Kathryn Bobby DO Ordering Physician: Kathryn Bobby DO Date of Service: 04/14/22 Procedure(s): CT abdomen pelvis w IV con Accession Number(s): [id number] cc: Kathryn Bobby DO EXAMINATION: CT ABDOMEN AND PELVIS WITH CONTRAST CLINICAL INFORMATION: Unintentional weight loss COMPARISON: Abdominal ultrasound February 2013 TECHNIQUE: Multidetector volumetric images were obtained from the superior aspect of the liver through the pubic symphysis following administration 85 mL of Omnipaque 350 intravenous contrast. Sagittal and coronal reformatted images were obtained on the technologist's workstation. Oral contrast: Yes This CT examination was performed using dose optimization techniques as appropriate, variously including the following: *Automated exposure control *Adjustment of mA and/or kV according to patient size (this includes techniques or standardized protocols for targeted exams where dose is matched to indication/reason for exam; i.e. extremities or head) *Use of iterative reconstruction technique DLP: 579 mGy-cm FINDINGS: LUNG BASES: The visualized lung bases are unremarkable. LIVER, GALLBLADDER, AND BILIARY TREE: The liver is normal in size, shape, and attenuation. No focal hepatic lesion or biliary ductal dilatation is present. There are small gallstones in the gallbladder. PANCREAS: Unremarkable. SPLEEN: Unremarkable. ADRENAL GLANDS: Unremarkable. KIDNEYS AND URETERS: The kidneys are normal in size, shape, and attenuation. Small bilateral peripelvic cysts, left greater than right. Small bilateral cortical cysts. No imaging follow-up recommended. No hydronephrosis, hydroureter, or calculi seen. No perinephric stranding. BLADDER: Unremarkable. GASTROINTESTINAL TRACT: Stool throughout the colon. Very mild diverticulosis. No evidence of diverticulitis. Normal stomach and small bowel. Appendix not seen. ABDOMINAL WALL: Small left inguinal hernia containing fat. LYMPH NODES: Normal. VASCULAR: Unremarkable. PELVIC VISCERA: The prostate gland has been removed. OSSEOUS STRUCTURES: Scoliosis and mild degenerative changes of the spine. Bilateral L5 pars defect. CT/CT abdomen pelvis w IV con IMPRESSION: No acute findings. Stool throughout the colon questionable for constipation. Small gallstone. Bilateral renal cysts. Post prostatectomy. Fleischner guidelines were followed. Dictated By: Gabrielle Figueredo MD Signed By: <Electronically signed by Gabrielle Figueredo MD in OV> 04/19/22 0805 DD/ 1041 TD/TT: Strawhat Inspector And Packer: KENNY [facility] External Provider IMG CT PROCEDURES Final Result * CT Chest w/ Contrast (04/14/2022 10:41 AM EST) Anatomical Region Laterality Modality Body, Chest Computed Tomogra phy 04/14/2022 10:4 1 AM EST Narrative 04/19/2022 8:03 AM EST ? [facility] ?[address] ?[place] [address] ? CT Scan Report ? Signed ? Patient: Tomi Jansen ?MR#: [id number] ?? 0 ? : 1945 ?Acct:[id number] ? Age/Sex: 76 / M ?ADM Date: 04/14/22 ? Loc: HO.CT ? Attending Dr: Kathryn Bobby DO ? Ordering Physician: Kathryn Bobby DO ?? Date of Service: 04/14/22 ?? Procedure(s): CT chest w IV con ?? Accession Number(s): [id number] ? cc: Kathryn Bobby DO ? EXAMINATION: ?? CT CHEST WITH CONTRAST ? CLINICAL INFORMATION: ?? Unintentional weight loss ? COMPARISON: ?? Previous chest x-ray October 2017 ? TECHNIQUE: ?? Multidetector volumetric CT imaging of the chest was obtained after the ?? administration of 85 mL of Omnipaque 350 intravenous contrast without ?? immediate adverse reactions. Axial MIP volume rendering provided. ?? Sagittal and coronal reformatted images were obtained. ? This CT examination was performed using dose optimization techniques as ?? appropriate, variously including the following: ?? *Automated exposure control ?? *Adjustment of mA and/or kV according to patient size (this includes ?? techniques or standardized protocols for targeted exams where dose is ?? matched to indication/reason for exam; i.e. extremities or head) ?? *Use of iterative reconstruction technique ? DLP: ?? 141 mGy-cm ? FINDINGS: ? LUNGS: There is focal bronchiectasis seen in the right middle lobe. The ?? lungs are otherwise clear. ? MEDIASTINUM: Normal heart size. Mild coronary artery calcification. No ?? pericardial effusion. Left subclavian pacemaker/AICD leads. Normal ?? caliber thoracic aorta. No enlarged hilar or mediastinal lymph nodes. ?? Normal esophagus. ? PLEURA: There is no pleural effusion. No pleural mass or thickening. ? AXILLA: No lymphadenopathy. ? OSSEOUS STRUCTURES: Degenerative changes of the spine. ? CT/CT chest w IV con ?? IMPRESSION: ?? Focal bronchiectasis in the right middle lobe. Mild coronary artery ?? calcification. ? Fleischner guidelines were followed. ? Dictated By: ?Gabrielle Figueredo MD ? Signed By: ?<Electronically signed by Gabrielle Figueredo MD in OV> ? 04/19/22 0800 ? DD/ 1041 ? TD/TT: ? Strawhat Inspector And Packer: SUJ ? Procedure Note Kimani, Image - 04/19/[address] [place] [address] [address] Scan Report Signed Patient: Belen Jansen#: [id number] 0 : 5Acct:[id number] Age/Sex: 76 / MADM Date: 04/14/22 Loc: HO.CT Attending Dr: Kathryn Bobby DO Ordering Physician: Kathryn Bobby DO Date of Service: 04/14/22 Procedure(s): CT chest w IV con Accession Number(s): [id number] cc: Kathryn oBbby DO EXAMINATION: CT CHEST WITH CONTRAST CLINICAL INFORMATION: Unintentional weight loss COMPARISON: Previous chest x-ray October 2017 TECHNIQUE: Multidetector volumetric CT imaging of the chest was obtained after the administration of 85 mL of Omnipaque 350 intravenous contrast without immediate adverse reactions. Axial MIP volume rendering provided. Sagittal and coronal reformatted images were obtained. This CT examination was performed using dose optimization techniques as appropriate, variously including the following: *Automated exposure control *Adjustment of mA and/or kV according to patient size (this includes techniques or standardized protocols for targeted exams where dose is matched to indication/reason for exam; i.e. extremities or head) *Use of iterative reconstruction technique DLP: 141 mGy-cm FINDINGS: LUNGS: There is focal bronchiectasis seen in the right middle lobe. The lungs are otherwise clear. MEDIASTINUM: Normal heart size. Mild coronary artery calcification. No pericardial effusion. Left subclavian pacemaker/AICD leads. Normal caliber thoracic aorta. No enlarged hilar or mediastinal lymph nodes. Normal esophagus. PLEURA: There is no pleural effusion. No pleural mass or thickening. AXILLA: No lymphadenopathy. OSSEOUS STRUCTURES: Degenerative changes of the spine. CT/CT chest w IV con IMPRESSION: Focal bronchiectasis in the right middle lobe. Mild coronary artery calcification. Fleischner guidelines were followed. Dictated By: Gabrielle Figueredo MD Signed By: <Electronically signed by Gabrielle Figueredo MD in OV> 04/19/22 0800 DD/ 1041 TD/TT: Strawhat Inspector And Packer: KENNY [facility] External Provider IMG CT PROCEDURES Final Result * POCT Creatinine GFR (04/14/2022 10:04 AM EST) POCT Creatinine 1.4 0.5 - 1.4 mg/dL [facility] GFR POC 51 [facility] Comment:Chronic Kidney Disea se: Estimated GFR < 60 mL/min/1.32j2Jlttna Kidney Disease: Estimated GFR < 15 mL/min/1.73m2 04/14/2022 10:0 4 AM EST 04/14/2022 2:23 PM EST Narrative [facility] - 04/14/2022 2:25 PM EST [phone] [facility] Exter nal Provider LAB POINT OF CARE TEST DOCKED DEVICE ORDERABLES Final Result [facility] [address] [place] [address] [phone] documented in this encounter Visit Diagnoses Diagnosis Unintentional weight loss- Primary Loss of weight documented in this encounter Additional Health Concerns Assessment Noted Time PHQ-9 Depression Total Score: 0 03/16/19 23 9:41 AM EST documented as of this encounter Care Teams Machine Made Shoe Unit Worker Relationship Specialty Start Date End Date Kathryn Bobby DO [address] [place] [address] PCP - General Family Medicine 12/19/12 Yuridia Myles supervisor bottle machines 03/15/23 documented as of this encounter
--- OUTSIDE RECORDS SUMMARY | 2024-05-09 10:57 | XMS_ITS | Clinical Summary ---
Author Organization [facility] Address [address] [facility] [address] [place] [address] Care Team Providers Care Dry House Wheeler Name Role Phone WilfredKathryn jennings Primary Care Provider [phone] Allergies No known active allergies Medications dorzolamide (Trusopt) 2 % ophthalmic solution Administer 1 drop into affected eye(s) every 12 (twelve) hours. Active apixaban (Eliquis) 5 MG tablet Take 1 tablet by mouth 2 times daily. Active cholecalciferol (Vitamin D-3) 25 MCG (1000 UT) tablet Take 1 tablet by mouth 1 (one) time each day. 2 Active ferrous sulfate 325 (65 Fe) MG tablet Take 325 mg by mouth 1 (one) time each day. 1 Active finasteride (Proscar) 5 MG tablet Take 1 tablet by mouth 1 (one) time each day. Active timolol (Timoptic) 0.5 % ophthalmic solution Administer 1 drop into affected eye(s) 1 (one) time each day. 1 Active Diclofenac Sodium 1 % gel Apply 2 g topically if needed in the morning, at noon, in the evening, and at bedtime (pain). 150 g 3 4 Active cyanocobalamin (Vitamin B-12) 1000 MCG tablet TAKE ONE TABLET BY MOUTH EVERY DAY 90 tablet 3 4 Active atorvastatin (Lipitor) 20 MG tablet TAKE ONE TABLET BY MOUTH EVERY DAY IN THE MORNING 90 tablet 1 4 Active aspirin (Aspirin Low Dose) 81 MG EC tablet TAKE ONE TABLET BY MOUTH EVERY DAY 90 tablet 1 4 Active amLODIPine (Norvasc) 10 MG tablet TAKE ONE TABLET BY MOUTH EVERY DAY IN THE MORNING 90 tablet 1 4 Active lisinopril 40 MG tablet TAKE ONE TABLET BY MOUTH EVERY MORNING 90 tablet 4 Active Active Problems Problem Noted Date Diagnosed Date Cataract of both eyes 02/17/2024 Assessment & Plan (02/17/2024 11:34 AM EST): Pt will proceed with catract surgery, first surgery scheduled for 03/02/2024 and second 04/01/24. F/u with PCP in 3 months Pre-op evaluation 02/17/2024 Assessment & Plan (02/17/2024 11:34 AM EST): PREOPERATIVE ASSESSMENT AND PLAN: -The incidence of perioperative cardiovascular events varies according to the patient risk profile, patient's functional capacity, and risk of the proposed surgery. Active cardiac conditions that are contraindications to elective surgery: Surgery-Specific Cardiac Risk: low Cardiac risk by patient profile (RCRI): Patient has 0 risk factors corresponding to 0.4%risk of a major cardiac event during surgery. Functional capacity = 6 METS. The patient reports being able to walk up 1 one flight of stairs and 2 blocks without stopping. This patient is at low risk for an low risk procedure. The patient is at acceptable risk for the proposed procedure. Reviewed with patient that no surgery is completely free of risk and this evaluation is to assist surgeon in accurately reviewing informed consent. Medication Recs: -advised pt to reach out to surgeon to confirm medication instructions -recommended stopping elliquis 48 hours before surgery BMI 25.0-25.9,adult 05/05/2023 Healthcare maintenance 03/16/2022 Assessment & Plan (03/16/2022 10:43 AM EST): -s/p flu vaccine NOV 2020->repeat today -s/p COVID vaccine April 2020+booster encouraged -s/p Tdap Feb 2013 -s/p pneumovax May 2013 -Hep A immune -s/p prevnar Sep 2015 -s/p zoster vaccine June 2016 -s/p Shingrix FEB 2020 -colonoscopy with diverticulosis/int hemorrhoids Apr 2008, IFOBT negative Nov 2018->repeat as above -FG/A1c nml JUL 2020 -STI/HIV screen negative Dec 2014 History of prostate cancer 03/16/2022 Assessment & Plan (03/16/2022 10:47 AM EST): s/p radical prostatectomy 2007 -PSA nml Feb 2019 -cont finasteride daily -re-referred to urology for f/u Second degree AV block, Mobitz type I 03/16/2022 Assessment & Plan (03/16/2022 10:48 AM EST): With progression to high-grade A/V block s/p pacemaker placement AUG 2020 -cont eliquis as per cards -cont regular PPM monitoring -f/u w/ cards as scheduled, due JAN 2022 Chronic left shoulder pain 03/16/2022 Assessment & Plan (03/16/2022 10:43 AM EST): Intermittent sx since PPM placement -referred for L shoulder x-rays -encouraged tylenol prn -trial diclofenac gel -referred to ortho for eval Status post placement of cardiac pacemaker 03/04 Paroxysmal A-fib 02/26/2021 Vitamin D deficiency 02/03/2015 History of alcoholism 02/03/2015 Gout 02/03/2015 Glaucoma 02/03/2015 Cobalamin deficiency 02/03/2015 Elevated fasting glucose 02/03/2015 Essential hypertension 11/13/2013 Assessment & Plan (03/16/2022 10:49 AM EST): BP controlled -cont HCTZ, lisinopril, and norvasc daily -Cr/GFR improved NOV 2020 w/ nml urine microalbumin JUL 2020->repeat prior to next visit -s/p optho eval with Dr. Solano August 2019->advised reschedule eval Anemia 11/13/2013 Assessment & Plan (03/16/2022 10:47 AM EST): Hgb improved NOV 2020 -iron studies wnl Nov 2020 -cont iron supplementation daily -colonoscopy with diverticulosis/int hemorrhoids APR 2008, he declines repeat colonoscopy, iFOBT negative NOV 2018->repeat prior to next visit, as not yet done Hyperlipidemia 11/13/2013 Overview (03/04/2022): Last Assessment & Plan: Continue atorvastatin 20 mg daily, continue baby aspirin. Assessment & Plan (03/16/2022 10:49 AM EST): LDL improved JUL 2020 -cont lipitor nightly -check lipids prior to next visit Stage 3 chronic kidney disease 12/16/2010 Assessment & Plan (03/16/2022 10:48 AM EST): Cr, GFR improved NOV 2020 w/ nml urine microalbumin JUL 2020 -cont lisinopril daily -optimal BP control -avoid NSAIDs -referred to renal for eval Resolved Problems Problem Noted Date Diagnosed Date Resolved Date Unintentional weight loss 03/16/2022 Assessment & Plan (03/16/2022 10:42 AM EST): w/ hx of prostate CA, ROS neg, wt down nearly 20 lbs since COVID -check basic labs -check ESR/CRP -check HIV and T-spot -check PSA -check prealbumin level -referred for CT chest and CT abd/pelvis -encouraged iFOBT as not yet done -re-referred to urology as above Pacemaker 09/25/2020 03/16/2022 Overview (03/04/2022): Last Assessment & Plan: Patient had implantation of a dual-chamber pacemaker on 09/05/2020 at [facility] due to complete heart block after presenting to the [facility] ED and being found to have a heart rate in the 30s. Device was interrogated today in the office by Zayra. Patient had frequent PVCs. We will see how this trends over the next few months to see if he may warrant from a beta-caterina. Please see full report for details. Patient has no device related or incision related complaints. His incision has healed nicely and there is no evidence of infection at this time. I discussed in detail the symptoms that would warrant an immediate call to the office or emergency room visit in terms of fevers, chills, discharge, bleeding, tenderness, redness or warmth. Patient stated understanding. Continue to monitor. Angina pectoris 11/22/2017 03/16/2022 Overview (03/04/2022): Last Assessment & Plan: He denies symptoms for angina at this time. Encounters Date Type Department Care Team Description 05/08/2024 Travel 03/01/2024 Telephone [facility] [address] [place], [place] [phone] Kathryn Bobby DO Fax Sent 02/24/2024 Refill [facility] [address] [place], [place] [phone] Kathryn Bobby DO 02/17/2024 10:30 AM EST Office Visit [facility] [address] [place], [place] [phone] Ana Luisa Reyes MD Pre-op evaluation (Primary Dx); Cataract of both eyes, unspecified cataract type 02/17/2024 Travel from Last 3 Months Immunizations Name Administration Dates Next Due Influenza High-dose Quadriva lent Preservative Free 12/18/2020 Influenza injectable quadriv alent IIV4 with preservative 04/15/2017,03/10/2016 Influenza injectable quadriv alent preservative free 03/10/2023,03/16/2022,11/29/2018,02/03 Influenza, IIV3, injectable 11/17/2010 Influenza, Split (incl. yayo fied surface antigen) 03/06/2013,03/08/2012 Influenza, Unspecified 12/18/2020,11/17/2010 Pneumococcal Conjugate PCV 13 10/03/2015 Pneumococcal Polysaccharide PPSV23 06/04/2013 TD (adult), 2 Lf tetanus tox oid, preservative free, adsorbed 04/26/2008 Tdap 03/06/2013 Zoster, Recombinant 03/05/2020,10/01/2019 Zoster, live 07/07/2016 Social History Tobacco Use Types Packs/Day Years Used Date Smoking Tobacco: Never Passive Smoke Exposure: Never Smokeless Tobacco: Never Tobacco Cessation:Counseling Given: Not Answered Alcohol Use Standard Drinks/Week Comments Never 0 (1 standard drink = 0.6 oz pur e alcohol) Depression Answer Date Recorded Patient Health Questionnaire-9 Score 0 11/03/2022 Housing Stability Answer Date Recorded What is your housing situation today? I have kamille chacon 09/02/[address] you li ve. Do you have problems with any of the following? None of the above 09/02/2023 Food Insecurity Answer Date Recorded Within the past 12 months, y ou worried that your food would run out before you got money to buy more: Never True 09/02/2023 Within the past 12 months,th e food you bought just didn't last and you didn't have enough money to get more: Never True 06/2023 Transportation Answer Date Recorded In the past 12 months, has l ack of transportation kept you from medical appts, meetings, work or from getting things needed for daily living? No 09/02/2023 Utilities Answer Date Recorded In the past 12 months, has t he electric, gas, oil or water company threatened to shut off services in your home? No 09/02/2023 Depression Answer Date Recorded Patient Health Questionnaire-2 Score 0 11/03/2022 Internet Access Answer Date Recorded Internet Access Q1 No 10/31/2023 Internet Access Q2 I do not want or need it 03/2023 Sex and Gender Information Value Date Recorded Sex Assigned at Male 12/28/2021 10:19 AM EDT Legal Sex Male 10:19 AM EDT Gender Identity Male 12/28/2021 10:19 AM EDT Sexual Orientation Straight 12/28/2021 10 :19 AM EDT Last Filed Vital Signs Vital Sign Reading Time Taken Comments Blood Pressure 140/80 02/17/2024 11:26 AM EST Pulse 83 02/17/2024 10:26 AM EST Temperature 36.6 ??C (97.8 ??F) 02/17/2024 10:[address] Respiratory Rate 14 02/17/2024 10:26 AM EST Oxygen Saturation 98% 02/17/2024 10:26 AM EST Inhaled Oxygen Concentration - - Weight 73.1 kg (161 lb 3.2 oz) 02/17/2024 10:26 AM EST Height 170.2 cm (5' 7 ) 02/17/2024 10:26 AM EST Body Mass Index 25.25 02/17/2024 10:26 AM EST Plan of Treatment Upcoming Encounters Date Type Department Care Team (Late st Contact Info) Description 06/15/2024 2:30 PM EDT Office Visit [facility] [address] [place] [address] Tamica Torres, OD [address] [place] [address] Health Maintenance Due Date Last Done Comments Alcohol/Substance Use Screening 1957 RSV Patients and Patients Aged 60 years or older (1 - 1-dose 75+ series) 10/23/2019 DTaP/Tdap/Td Vaccines (2 - Td or Tdap) 03/06/2023 03/06/2013, 04/26/2008 COVID-19 Vaccine ( - 2023- season) 2023 05/16/2020, 04/15/2020 Influenza Vaccine (#1) 2023 , 03/16/2022, 12/18/2020, Additional history exists Depression Screening 11/04/2023 11/03/2022, 11/04/19 23 SDOH Screening 09/01/2024 09/02/2023 Tobacco Screening 05/08/2025 05/08/2024 Lipid Panel 07/08/2027 07/07/2022, 03/31, 09/15/2021, Additional history exists Pneumococcal Vaccine: 50+ Years Completed 10/03/2015, 06/04/2013 Zoster Vaccines Completed 03/05/2020, 0804/2019, 07/07/2016 Hepatitis C Screening Completed 09/15/2021 HIB Vaccines Aged Out No longer eligi ble based on patient's age to complete this topic HPV Vaccines Aged Out No longer eligi ble based on patient's age to complete this topic Hepatitis A Vaccines Aged Out No long er eligible based on patient's age to complete this topic Hepatitis B Vaccines Aged Out No long er eligible based on patient's age to complete this topic IPV Vaccines Aged Out No longer eligi ble based on patient's age to complete this topic Meningococcal Vaccine Aged Out No rajat taj eligible based on patient's age to complete this topic RSV under 20 months Aged Out No longe r eligible based on patient's age to complete this topic Rotavirus Vaccines Aged Out No longer eligible based on patient's age to complete this topic Procedures Procedure Name Priority Date/Time Associated Diagnosis Comments LIPID PANEL, STANDARD Routine 07/07/2022 9:30 AM EDT Essential hypertension [facility] HISTORICAL HEPATITIS C AB W/REFL TO HCV RNA, QN, PCR Routine 09/15/2021 11:24 AM EDT from Last 3 Months or Most Recently Relevant to Health Maintenance Results * (ABNORMAL) Lipid Panel, Standard (07/07/2022 9:30 AM EDT) [facility] Cholesterol, Total 133 <200 mg/dL [facility] HDL Cholesterol 35(L) > OR = 40 mg/dL [employer] Triglycerides 110 <150 mg/dL [facility] [place] [facility] LDL Cholesterol 78 mg/dL (calc) [facility] Comment: Reference range: <100 Desirable range <100 mg/dL for primary prevention; ?? <70 mg/dL for patients with CHD or diabetic patients with > or = 2 CHD risk factors. LDL-C is now calculated using the Serge-Eduardo calculation, which is a validated novel method providing better accuracy than the Friedewald equation in the estimation of LDL-C. Serge SS et al. CARLOS. 2013;310(19): 3114-7182 (http://education.[employer]/faq/ZEI463) Chol/HDLC Ratio 3.8 <5.0 (calc) [facility] Non-HDL Cholesterol 98 <130 mg/dL (calc) [facility] Comment: For patients with diabetes plus 1 major ASCVD risk factor, treating to a non-HDL-C goal of <100 mg/dL (LDL-C of <70 mg/dL) is considered a therapeutic option. Blood Venous blood specimen / Unknown 07/07/2022 9:30 AM EDT 07/07/2022 9:31 AM EDT Narrative [facility] - 07/07/2022 11:57 PM EDT FASTING:YES FASTING: YES Kathryn Bobby DO LAB BLOOD ORDERABLES Final R esult [facility] [address] [facility], [facility], [place] [address] [facility] [address] [place] [address] * HEPATITIS C AB W/REFL TO HCV RNA, QN, PCR (09/15/2021 11:24 AM EDT) HEPATITIS C ANTIBODY NON-REACT HERSON NON-REACT HERSON [facility] INDEX 0.12 <1.00 [facility] Comment: ?? HCV antibody was non-reactive. There is no laboratory ?? evidence of HCV infection. ?? In most cases, no further action is required. However, if recent HCV exposure is suspected, a test for HCV RNA (test code 84277) is suggested. ?? For additional information please refer to http://education.[employer]/faq/WSM40m1 (This link is being provided for informational/ educational purposes only.) ?? 09/15/2021 11:2 4 AM EDT Kathryn Bobby DO HISTORICAL/NON ORDERABLE LAB S Final Result [facility] [address] from Last 3 Months or Most Recently Relevant to Health Maintenance Insurance [address] [place] [address] [place] [id number] [facility] Care Teams Dry House Wheeler Relationship Specialty Start Date End Date Kathryn Bobby DO [address] [place] [phone] PCP - General Family Medicine 12/19/12 Yuridia Myles building rental manager 03/15/23
--- OUTSIDE RECORDS SUMMARY | 2024-05-09 10:57 | XMS_ITS | Clinical Summary ---
Author Organization [facility]. Address [address] [facility] [address] [place] [address] Phone Care Team Providers Care Accounts Payable Processor Name Role Phone Kathryn Bobby DO Primary Care Provider Unava ilable Allergies No known active allergies Medications 8 Hour Arthritis Pain Reliever 650 MG 8 hr tablet Take 1 tablet by mouth 1 (one) time each day if needed 2 Active amLODIPine (NORVASC) 10 MG tablet Take 10 mg by mouth 1 (one) time each day 5 Active Eliquis 5 MG tablet Take 5 mg by mouth 2 (two) times a day 2 Active Aspirin Low Dose 81 MG EC tablet Take 1 tablet by mouth 1 (one) time each day if needed 2 Active atorvastatin (LIPITOR) 20 MG tablet Take 20 mg by mouth at bed time 2 Active bimatoprost (Lumigan) 0.01 % ophthalmic drops Comments: Filled Date: Aug 30 2014 12:00AM Duration: 40 5 Active cholecalciferol (VITAMIN D-3) 25 MCG (1000 UT) tablet Take 1,000 Units by mouth 1 (one) time each day 2 Active cyanocobalamin (VITAMIN B-12) 1000 MCG tablet Take 1,000 mcg by mouth 1 (one) time each day 2 Active Diclofenac Sodium 1 % gel APPLY 2 GRAMS TOPICALLY TO AFFECTED AREA(S) TWO TIMES A DAY NEEDED FOR PAIN 2 Active dorzolamide (TRUSOPT) 2 % ophthalmic solution PLACE 1 DROP IN EACH EYE CADA 12 HORAS 2 Active ferrous sulfate 325 (65 Fe) MG tablet Take 325 mg by mouth 1 (one) time each day 2 Active lisinopril 40 MG tablet Take 40 mg by mouth 1 (one) time each day 2 Active metoprolol succinate XL (TOPROL-XL) 100 MG 24 hr tablet Take 100 mg by mouth 1 (one) time each day 5 Active pravastatin (PRAVACHOL) 40 MG tablet Take 40 mg by mouth 1 (one) time each day 4 Active timolol (TIMOPTIC) 0.5 % ophthalmic solution Administer 0.5 drops into both eyes 1 (one) time each day 2 Active Active Problems Problem Noted Date Diagnosed Date Benign essential hypertension 11/22/2017 Overview (12/17/2022): Last Assessment & Plan: BP slightly elevated in office today. Patient is unsure what his normal readings are at home. Last echo from 2017, will repeat. Consider increase in HCTZ at next appointment (1-2m follow up visit) if remains elevated. Anemia 11/13/2013 Hypertension 11/13/2013 Chronic kidney disease stage 3 12/16/2010 Resolved Problems Problem Noted Date Diagnosed Date Resolved Date History of malignant neoplasm of prostate 03/16/2022 12/17/2022 12/17/2022 Overview (12/17/2022): Last Assessment & Plan: s/p radical prostatectomy 2007 -PSA nml Feb 2019 -cont finasteride daily -re-referred to urology for f/u Pain in left shoulder 03/16/2022 12/17/20222022 Overview (12/17/2022): Last Assessment & Plan: Intermittent sx since PPM placement -referred for L shoulder x-rays -encouraged tylenol prn -trial diclofenac gel -referred to ortho for eval Patient encounter status 03/16/2022 12/17/2022 Overview (12/17/2022): Last Assessment & Plan: -s/p flu vaccine NOV 2020->repeat today -s/p COVID vaccine April 2020+booster encouraged -s/p Tdap Feb 2013 -s/p pneumovax May 2013 -Hep A immune -s/p prevnar Sep 2015 -s/p zoster vaccine June 2016 -s/p Shingrix FEB 2020 -colonoscopy with diverticulosis/int hemorrhoids Apr 2008, IFOBT negative Nov 2018->repeat as above -FG/A1c nml JUL 2020 -STI/HIV screen negative Dec 2014 Unintentional weight loss 03/16/2022 12/17/2022 Overview (12/17/2022): Last Assessment & Plan: w/ hx of prostate CA, ROS neg, wt down nearly 20 lbs since COVID -check basic labs -check ESR/CRP -check HIV and T-spot -check PSA -check prealbumin level -referred for CT chest and CT abd/pelvis -encouraged iFOBT as not yet done -re-referred to urology as above H/O: cardiac pacemaker in situ 03/04/2022 12/17/2022 12/17/2022 Paroxysmal atrial fibrillation 02/26/2021 12/17/2022 12/17/2022 Cardiac pacemaker in situ 09/25/2020 12/17/2022 Overview (12/17/2022): Last Assessment & Plan: Patient had implantation of a dual-chamber pacemaker on 09/05/2020 at [facility] due to complete heart block after presenting to the [facility] ED and being found to have a [...] warmth. Patient stated understanding. Continue to monitor. Complete heart block 09/25/2020 12/17/2022 023 Mobitz type I incomplete atr ioventricular block 05/17/2018 12/17/2022 12/17/2022 Overview (12/17/2022): Last Assessment & Plan: He had a history of winky block which was detected during a stress test. 48-hour Holter monitor showed no heart block. Last Assessment & Plan: With progression to high-grade A/V block s/p pacemaker placement AUG 2020 -cont eliquis as per cards -cont regular PPM monitoring -f/u w/ cards as scheduled, due JAN 2022 Cardiac arrhythmia 12/06/2017 12/17/2022 Overview (12/17/2022): Last Assessment & Plan: Per device download, rate is controlled in atrial fibrillation. Patient is completely asymptomatic. No need for rate control at this time. Will start Eliquis 5 mg BID. Patient instructed to monitor for adverse bleeding effects. Educated at length regarding side effects of DOACs. Angina pectoris 11/22/2017 12/17/2022 12/17/2022 Overview (12/17/2022): Last Assessment & Plan: He denies symptoms for angina at this time. Cobalamin deficiency 02/03/2015 12/17/2022 023 Elevated fasting glucose 02/03/2015 12/17/2022 Glaucoma 02/03/2015 12/17/2022 12/17/2022 Gout 02/03/2015 12/17/2022 12/17/2022 H/O: alcoholism 02/03/2015 12/17/2022 12/17/2022 Vitamin D deficiency 02/03/2015 12/17/2022 023 Hyperlipidemia 11/13/2013 12/17/2022 Immunizations Name Administration Dates Next Due Influenza Split 03/06/2013,03/08/2012 Influenza, Quadrivalent, Preservative Free 03/16,11/29/2018,02/03/2015 Influenza, Quadrivalent, With Preservative 04/15,03/10/2016 Influenza, Unspecified 12/18/2020,11/17/2010 Moderna SARS-COV-2 04/15/2020 Pneumococcal Conjugate 13-Valent 10/03/2015 Pneumococcal Polysaccharide 06/04/2013 Shingrix 03/05/2020,10/01/2019 Td 04/26/2008 Tdap 03/06/2013 Zoster 07/07/2016 Social History Tobacco Use Types Packs/Day Years Used Date Smoking Tobacco: Never Assessed Tobacco Cessation:Counseling Given: Not Answered Sex and Gender Information Value Date Recorded Sex Assigned at Not on file Legal Sex Male 5:16 PM EST Gender Identity Not on file Sexual Orientation Not on file Last Filed Vital Signs Vital Sign Reading Time Taken Comments Blood Pressure 142/80 12/17/2022 10:25 AM EDT Pulse 67 12/17/2022 10:25 AM EDT Temperature - - Respiratory Rate - - Oxygen Saturation 99% 12/17/2022 10:25 AM EDT Inhaled Oxygen Concentration - - Weight 78.2 kg (172 lb 6.4 oz) 12/17/2022 10:25 AM EDT Height - - Body Mass Index - - Plan of Treatment Health Maintenance Due Date Last Done Comments Influenza Vaccine (#1) 2023 4, 03/16/2022, 12/18/2020, Additional history exists Pneumococcal Vaccine: 65+ Years Completed 10/03/2015, 06/04/2013 Hepatitis B Vaccine Aged Out No longe r eligible based on patient's age to complete this topic Insurance [facility] ([id number]) [facility] ([id number]) Care Teams Accounts Payable Processor Relationship Specialty Start Date End Date Kathryn Bobby DO PCP - General 01/02/19
--- OUTSIDE RECORDS SUMMARY | 2024-05-09 10:57 | XMS_ITS | Encounter Summary ---
Author Organization [facility] Address [address] [facility] [address] [place] [address] Care Team Providers Care Yarn Spinner Name Role Phone Kathryn Bobby Primary Care Provider Encounter Details Date Type Department Care Team (Latest Contact Info) Description 05/08/2024 Travel Social History Tobacco Use Types Packs/Day Years Used Date Smoking Tobacco: Never Passive Smoke Exposure: Never Smokeless Tobacco: Never Alcohol Use Standard Drinks/Week Comments Never 0 (1 standard drink = 0.6 oz pur e alcohol) Depression Answer Date Recorded Patient Health Questionnaire-9 Score 0 11/03/2022 Housing Stability Answer Date Recorded What is your housing situation today? I have kamilel chacon 09/02/[address] you [...] Orientation Straight 12/28/2021 10 :19 AM EDT documented as of this encounter Plan of Treatment Upcoming Encounters Date Type Department Care Team (Late st Contact Info) Description 06/15/2024 2:30 PM EDT Office Visit [facility] [address] [place] [address] Tamica Torres, OD [address] [place] [address] documented as of this encounter Visit Diagnoses Not on filedocumented in this encounter Additional Health Concerns Assessment Noted Time PHQ-9 Depression Total Score: 0 11/04/19 23 9:19 AM EDT documented as of this encounter Care Teams Yarn Spinner Relationship Specialty Start Date End Date Kathryn Bobby DO [address] [place] [phone] PCP - General Family Medicine 12/19/12 Yuridia Myles prototype technician 03/15/23 documented as of this encounter
[2024-05-09 11:21] LABS: MANUAL DIFF FLAG NO
[2024-05-09 11:47] LABS: Basophils Absolute Auto 0.1 X10*3/uL (0.0-0.2); Basophils Percent Auto 0.7 % (0-2); Eosinophils Absolute Auto 0.3 X10*3/uL (0.0-0.4); Eosinophils Percent Auto 4.5 % (0-4); Hematocrit 33.3 % (42.0-52.0); Hemoglobin 10.5 g/dl (14.0-18.0); Imm Gran Abs Auto 0.02 X10*3/uL (0.00-0.03); Imm Gran Pct Auto 0.3 % (0.0-0.4); Lymphocytes Absolute Auto 2.2 X10*3/uL (1.2-4.9); Lymphocytes Percent Auto 31.2 % (20-40); Mean Corpuscular HGB Conc 31.5 g/dl (31.0-36.0); Mean Corpuscular Hemoglobin 29.6 pg (27.0-33.0); Mean Corpuscular Volume 93.8 fL (80.0-98.0); Mean Platelet Volume 11.4 fL (9.4-12.4); Monocytes Absolute Auto 0.7 X10*3/uL (0.1-1.2); Neutrophils Absolute Auto 3.8 x10*3/uL (2.0-8.3); Neutrophils Percent Auto 53.3 % (45-73); Platelet Count 181 X10*3/uL (160-400); Red Blood Count 3.55 X10*6/uL (4.60-5.80); Red Cell Distribution Width 14.1 % (11.0-16.0); White Blood Count 7.1 X10*3/uL (4.8-10.8)
[2024-05-09 12:06] LABS: Estimated Average Glucose 108 mg/dL; Hemoglobin A1c % 5.4 % (<6.0)
[2024-05-09 12:14] LABS: Anion Gap 11 (12-20)
[2024-05-09 12:26] LABS: Creatinine Urine 116.45 mg/dL; Microalbum/Creatinine Ratio Ur 23.1 ug/mg cr (<30)
[2024-05-09 12:29] LABS: Alanine Aminotransferase 26 U/L (0-40); Albumin Level 4.1 g/dL (3.5-5.0); Alkaline Phosphatase 113 U/L (39-117); Aspartate Amino Transferase 28 U/L (5-37); Bilirubin Direct 0.1 mg/dL (0.0-0.5); Bilirubin Total 0.4 mg/dL (0.0-1.0); Blood Urea Nitrogen 23 mg/dL (9-16); Calcium 9.1 mg/dL (8.4-10.2); Carbon Dioxide 23 mmol/L (22-29); Chloride 114 mmol/L (96-108); Cholesterol 132 mg/dL (<200); Estimated Glomerular Filt Rate 53; Free T4 (Free Thyroxine) 0.99 ng/dL (0.71-1.85); Glucose Random 87 mg/dL (60-115); HDL Cholesterol 37 mg/dL (>40); Iron 48 mcg/dL (45-160); LDL Cholesterol Calculated 78 mg/dL (<100); Percent Iron Saturation 24 % (15-50); Potassium 4.6 mmol/L (3.3-5.1); Sodium 143 mmol/L (135-145); Thyroid Stimulating Hormone 2.89 uIU/mL (0.32-4.0); Total Iron Binding Capacity 201 mcg/dL (228-428); Total Protein 7.5 g/dL (6.5-8.0); Triglycerides 88 mg/dL (<150); Unsaturated Iron Binding 153 ug/dL; Vitamin D 25-OH Total 19.5 ng/mL (>30)
[2024-05-09 13:06] LABS: Ferritin 185 ng/mL (20-250)
[2024-05-09 13:08] LABS: Folate 12.6 ng/mL (> or = 4.0); Vitamin B12 797 pg/mL (200-900)
[2024-05-13 04:49] LABS: Methylmalonic Acid 197 nmol/L (69-390)
== END 2024-05-09 09:51 | disposition home or self-care (01) ==
LOC: HO.HHCL 09:50
PROVIDERS: Family Medicine; Visit Provider Optometrist
DX: Z00.00 Encounter for general adult medical examination without abnormal findings (principal); H46.9 Unspecified optic neuritis; I10 Essential (primary) hypertension; E78.49 Other hyperlipidemia; I44.1 Atrioventricular block, second degree; I48.0 Paroxysmal atrial fibrillation; N18.30 Chronic kidney disease, stage 3 unspecified; D64.9 Anemia, unspecified; M25.562 Pain in left knee; G89.29 Other chronic pain; Z85.46 Personal history of malignant neoplasm of prostate; R42 Dizziness and giddiness
CPT/HCPCS: 36415; 80053; 80061; 80076; 82043; 82248; 82306; 82570; 82607; 82728; 82746; 83036; 83540; 83921; 84439; 84443; 85025; 85027

== ENCOUNTER 2024-06-22 10:38 | Outpatient (REF) | payer MEDICAID, SELFPAY ==
--- OUTSIDE RECORDS SUMMARY | 2024-06-22 11:22 | XMS_ITS | Clinical Summary ---
Author Organization [facility]. Address [address] [place] [address] Phone Care Team Providers Care Scrap Collector Name Role Phone Kathryn Bobby DO Primary [...] [place] [facility] [place] to [place] presenting to [place] [facility] ED and being found to have a heart rate in the 30s. Device was interrogated today in the office by [employer]. Patient had frequent PVCs. We will see [...] which was detected during a stress test. 48- hour Holter monitor showed no heart block. Last [...] 02/03/2015 12/17/2022 023 Hyperlipidemia 11/13/2013 12/17/2022 Immunizations Immunization Administration Dates Next Due Influenza Split 03/06/2013,03/08/2012 [...] Due Date Last Done Comments Influenza Vaccine (Season Ended) 2024 03/10/2023, 03/16/2022, 12/18/2020, Additional history exists Pneumococcal Vaccine: 50+ Years Completed 10/03/2015, 06/04/2013 Pneumococcal Vaccine: Peds (0 to 5 Years) and At-Risk Patients (6 to 49 Years) Discontinued 10/03/2015, 06/04/2013 Hepatitis B Vaccine Aged Out No longe r eligible based on patient's age to complete this topic Insurance [facility] ([id number]) [facility] ([id number]) Care Teams Scrap Collector Relationship Specialty Start Date End Date Kathryn Bobby DO PCP - General 01/02/19
--- OUTSIDE RECORDS SUMMARY | 2024-06-22 11:22 | XMS_ITS | Encounter Summary ---
Author Organization [facility] Address [address] [place] [address] Care Team Providers Care Package Sorter Name Role Phone Kathryn Bobby DO Primary Care Provider Encounter Details Date Type Department Care Team (Late st Contact Info) Description 04/01/2022 Orders Only [facility] [address] [place], [place] [phone] Kathryn Bobby DO [address] [place], [place] [phone] Unintentional weight loss (Primary Dx) Social History [...] as of this encounter Plan of Treatment Scheduled Orders Name Type Priority Associated Diagnoses [...] EST Narrative 04/19/2022 8:09 AM EST ? [facility] ?[address] ?[place] [address] ? CT Scan Report ? Signed ? Patient: Tomi Jansen ?MR#: [id number] ?? 0 ? : 1945 ?Acct:[id number] ? Age/Sex: 76 / M ?ADM Date: 04/14/22 ? Loc: HO.CT ? Attending Dr: Kathryn Bobby DO ? Ordering Physician: Kathryn Bobby DO ?? Date of Service: 04/14/22 ?? Procedure(s): CT abdomen pelvis w IV con ?? Accession Number(s): [id number] ? cc: Kathryn Bobby DO ? EXAMINATION: [...] Gabrielle Figueredo MD in OV> ? 04/19/22 0805 ? DD/ 1041 ? TD/TT: ? Defense Travel Administrator: SUJ ? Procedure Note Hailee Harman - 04/19/[address] [address] [address] Scan Report Signed Patient: Tomi Jansen#: [id number] 0 : 5Acct:[id number] Age/Sex: 76 / MADM Date: 04/14/22 Loc: HO.CT Attending Dr: Kathryn Bobby DO Ordering Physician: Kahtryn Bobby DO Date of Service: 04/14/22 Procedure(s): CT abdomen pelvis w IV con Accession Number(s): [id number] cc: Kathryn Bobby DO EXAMINATION: CT ABDOMEN [...] in OV> 04/19/22 0805 DD/ 1041 TD/TT: Defense Travel Administrator: KENNY us [facility] External Provider IMG CT PROCEDURES Final Result * CT Chest w/ Contrast (04/14/2022 10:41 AM EST) Anatomical Region Laterality Modality Body, Chest Computed Tomogra phy 04/14/2022 10:4 1 AM EST Narrative 04/19/2022 8:03 AM EST ? [facility] ?[address] ?[place] [address] ? CT Scan Report ? Signed ? Patient: Inderjit,Tomi ?MR#: [id number] ?? 0 ? : 1945 ?Acct:[id number] ? Age/Sex: 76 / M ?ADM Date: 04/14/22 ? Loc: HO.CT ? Attending Dr: Kathryn Bobby DO ? Ordering Physician: Kathryn Bobby DO ?? Date of Service: 04/14/22 ?? Procedure(s): CT chest w IV con ?? Accession Number(s): [id number] ? cc: Kathryn Bobby DO ? EXAMINATION: [...] 0800 ? DD/ 1041 ? TD/TT: ? Defense Travel Administrator: SUJ ? Procedure Note Hailee Harman - 04/19/[address] [place] [address] [address] Scan Report Signed Patient: Belen Jansen#: [id number] 0 : 5Acct:[id number] Age/Sex: 76 / MADM Date: 04/14/22 Loc: HO.CT Attending Dr: Kathryn Bobby DO Ordering Physician: Kathryn Bobby DO Date of Service: 04/14/22 Procedure(s): CT chest w IV con Accession Number(s): [id number] cc: Kathryn Bobby DO EXAMINATION: CT CHEST WITH CONTRAST CLINICAL [...] in OV> 04/19/22 0800 DD/ 1041 TD/TT: Defense Travel Administrator: KENNY [facility] External Provider IMG CT PROCEDURES Final Result * POCT Creatinine GFR (04/14/2022 10:04 AM EST) POCT Creatinine 1.4 0.5 - 1.4 mg/dL [facility] GFR POC 51 [facility] Comment:Chronic Kidney Disea se: Estimated GFR < 60 mL/min/1.33c7Mmrrbu Kidney Disease: Estimated GFR < 15 mL/min/1.73m2 04/14/2022 10:0 4 AM EST 04/14/2022 2:23 PM EST Narrative [facility] - 04/14/2022 2:25 PM EST [id number] [facility] Exter nal Provider LAB POINT OF CARE TEST DOCKED DEVICE ORDERABLES Final Result [facility] [address] [place] [address] [phone] documented in this encounter Visit Diagnoses Diagnosis Unintentional weight loss- Primary Loss of weight documented in this encounter Additional Health Concerns Assessment Noted Time PHQ-9 Depression Total Score: 0 03/16/19 23 9:41 AM EST documented as of this encounter Care Teams Package Sorter Relationship Specialty Start Date End Date Kathryn Bobby DO [address] [place] [address] PCP - General Family Medicine 12/19/12 Yuridia Myles livestock farmer 03/15/23 documented as of this encounter
--- OUTSIDE RECORDS SUMMARY | 2024-06-22 11:22 | XMS_ITS | Clinical Summary ---
Author Organization Metail Address [address] [facility] [address] [place] [address] Care Team Providers Care Road Manager Name Role Phone WilfredKathryn jennings Primary Care Provider [phone] Allergies No known active allergies Medications dorzolamide (Trusopt) 2 % ophthalmic solution Administer 1 drop into affected eye(s) every 12 (twelve) hours. Active apixaban (Eliquis) 5 MG tablet Take 1 tablet by mouth 2 times daily. Active ferrous sulfate 325 (65 Fe) MG tablet Take 325 mg by mouth 1 (one) time each day. 12/19/19 21 Active finasteride (Proscar) 5 MG tablet Take 1 tablet by mouth 1 (one) time each day. Active timolol (Timoptic) 0.5 % ophthalmic solution Administer 1 drop into affected eye(s) 1 (one) time each day. 11/01/19 21 Active Diclofenac Sodium 1 % gel Apply 2 g topically if needed in the morning, at noon, in the evening, and at bedtime (pain). 150 g 3 03/10/19 24 Active cyanocobalamin (Vitamin B-12) 1000 MCG tablet TAKE ONE TABLET BY MOUTH EVERY DAY 90 tablet 3 07/11/19 24 Active aspirin (Aspirin Low Dose) 81 MG EC tablet TAKE ONE TABLET BY MOUTH EVERY DAY 90 tablet 1 12/28/19 24 Active amLODIPine (Norvasc) 10 MG tablet TAKE ONE TABLET BY MOUTH EVERY DAY IN THE MORNING 90 tablet 1 02/09/20 24 Active cholecalcifero l (Vitamin D-3) 50 MCG (1999) capsuleIndicat ions:Vitamin D deficiency Take 1 capsule (50 mcg) by mouth Once per day. 90 capsule 3 05/16/19 25 Active lisinopril 40 MG tablet TAKE ONE TABLET BY MOUTH EVERY MORNING 90 tablet 05/26/19 25 Active atorvastatin (Lipitor) 20 MG tablet TAKE ONE TABLET BY MOUTH EVERY DAY IN THE MORNING 90 tablet 1 06/22/19 25 Active atorvastatin (Lipitor) 20 MG tabletIndicati ons:Hyperlipid emia LDL goal <130 Take 1 tablet (20 mg) by mouth in the morning. 90 tablet 1 06/22/19 25 Active atorvastatin (Lipitor) 20 MG tablet TAKE ONE TABLET BY MOUTH EVERY DAY IN THE MORNING 90 tablet 1 12/09/19 24 025 Discontinued(Re order (will not trigger notification to Pharmacy)) lisinopril 40 MG tablet TAKE ONE TABLET BY MOUTH EVERY MORNING 90 tablet 02/24/20 24 025 Discontinued Active Problems Problem Noted Date Diagnosed Date Pre-op evaluation 02/17/2024 Assessment & Plan (02/17/2024 [...] Problem Noted Date Diagnosed Date Resolved Date Cataract of both eyes 02/17/20242024 Assessment & Plan (02/17/2024 11:34 AM EST): Pt will proceed with catract surgery, first surgery scheduled for 03/02/2024 and second 04/01/24. F/u with PCP in 3 months Unintentional weight loss 03/16/2022 Assessment & Plan [...] [place] [facility] [place] to [place] heart [place] after presenting to the [facility] ED and being found to have a [...] Encounters Date Type Department Care Team Description 06/20/2024 Refill [facility] [address] [place] [address] Kathryn Bobby DO Hyperlipidemia LDL goal <130 06/19/2024 Refill [facility] [address] [place] [address] Kathryn Bobby DO 06/15/2024 2:30 PM EDT Office Visit [facility] [address] [place] [address] Tamica Torres, OD Optic neuropathy, bilateral (Primary Dx); Primary open angle glaucoma of both eyes, unspecified glaucoma stage 06/15/2024 Travel 05/25/2024 Refill [facility] [address] [place] [address] Sindy Zhao MD 05/10/2024 Refill [facility] [address] [place] [address] Layla Doran RN Vitamin D deficiency 05/08/2024 1:00 PM EDT Office Visit [facility] [address] [place] [address] Tamica Torres, OD Optic neuropathy, bilateral (Primary Dx); Primary open angle glaucoma of both eyes, unspecified glaucoma stage; Macular pattern dystrophy; Presence of intraocular lens 05/08/2024 Travel from Last 3 Months Immunizations Name [...] is your housing situation today? I have kamillejessica chacon 09/02/[address] you [...] 02/17/2024 10:26 AM EST Plan of Treatment Health Maintenance Due Date Last Done Comments Alcohol/Substance Use Screening 1957 RSV Patients and Patients Aged 60 years or older (1 - 1-dose 75+ series) 10/23/2019 DTaP/Tdap/Td Vaccines (2 - Td or Tdap) 03/06/2023 03/06/2013, 04/26/2008 COVID-19 Vaccine ( - season) 2023 05/16/2020, 04/15/2020 Influenza Vaccine (#1) 2023 , 03/16/2022, 12/18/2020, Additional history exists Depression Screening 11/04/2023 11/03/2022, 11/04/19 23 SDOH Screening 09/01/2024 09/02/2023 Tobacco Screening 06/15/2025 06/15/2024 Lipid Panel 05/09/2029 05/09/2024, 05, 04/09/2022, Additional history exists Pneumococcal Vaccine: 50+ Years Completed 10/03/2015, 06/04/2013 Zoster Vaccines Completed 03/05/2020, 04/2019, 07/07/2016 Hepatitis C Screening Completed 09/15/2021 HIB [...] Procedure Name Priority Date/Time Associated Diagnosis Comments AUTOMATED VISUAL FIELD, EXTENDED - OU - BOTH EYES Routine 06/15/2024 2:30 PM EDT Optic neuropathy, bilateral COMPREHENSIVE METABOLIC PANEL Routine 05/09/2024 9:54 AM EDT Optic neuropathy, bilateral METHYLMALONIC ACID Routine 05/09/2024 9: 54 AM EDT Optic neuropathy, bilateral CBC WITH AUTO DIFFERENTIAL Routine 05/09/2024 9:54 AM EDT Optic neuropathy, bilateral IRON AND TOTAL IRON BINDING CAPACITY Routine 05/09/2024 9:54 AM EDT Essential hypertension Other hyperlipidemia Second degree AV block, Mobitz type I Paroxysmal A-fib (CMS/HCC) Stage 3 chronic kidney disease, unspecified whether stage 3a or 3b CKD (CMS/HCC) Anemia, unspecified type Chronic pain of left knee History of prostate cancer Dizziness Healthcare maintenance FERRITIN Routine 05/09/2024 9:54 AM EDT Essential hypertension Other hyperlipidemia Second degree AV block, Mobitz type I Paroxysmal A-fib (CMS/HCC) Stage 3 chronic kidney disease, unspecified whether stage 3a or 3b CKD (CMS/HCC) Anemia, unspecified type Chronic pain of left knee History of prostate cancer Dizziness Healthcare maintenance VITAMIN B12/FOLATE, SERUM PANEL Routine 05/09/2024 9:54 AM EDT Essential hypertension Other hyperlipidemia Second degree AV block, Mobitz type I Paroxysmal A-fib (CMS/HCC) Stage 3 chronic kidney disease, unspecified whether stage 3a or 3b CKD (CMS/HCC) Anemia, unspecified type Chronic pain of left knee History of prostate cancer Dizziness Healthcare maintenance ALBUMIN, RANDOM URINE W/CREATININE Routine 05/09/2024 9:54 AM EDT Essential hypertension Other hyperlipidemia Second degree AV block, Mobitz type I Paroxysmal A-fib (CMS/HCC) Stage 3 chronic kidney disease, unspecified whether stage 3a or 3b CKD (CMS/HCC) Anemia, unspecified type Chronic pain of left knee History of prostate cancer Dizziness Healthcare maintenance CBC Routine 05/09/2024 9:54 AM EDT Essential hypertension Other hyperlipidemia Second degree AV block, Mobitz type I Paroxysmal A-fib (CMS/HCC) Stage 3 chronic kidney disease, unspecified whether stage 3a or 3b CKD (CMS/HCC) Anemia, unspecified type Chronic pain of left knee History of prostate cancer Dizziness Healthcare maintenance HEMOGLOBIN A1C Routine 05/09/2024 9:54 AM EDT Essential hypertension Other hyperlipidemia Second degree AV block, Mobitz type I Paroxysmal A-fib (CMS/HCC) Stage 3 chronic kidney disease, unspecified whether stage 3a or 3b CKD (CMS/HCC) Anemia, unspecified type Chronic pain of left knee History of prostate cancer Dizziness Healthcare maintenance HEPATIC FUNCTION PANEL Routine 9:54 AM EDT Essential hypertension Other hyperlipidemia Second degree AV block, Mobitz type I Paroxysmal A-fib (CMS/HCC) Stage 3 chronic kidney disease, unspecified whether stage 3a or 3b CKD (CMS/HCC) Anemia, unspecified type Chronic pain of left knee History of prostate cancer Dizziness Healthcare maintenance TSH Routine 05/09/2024 9:54 AM EDT Essential hypertension Other hyperlipidemia Second degree AV block, Mobitz type I Paroxysmal A-fib (CMS/HCC) Stage 3 chronic kidney disease, unspecified whether stage 3a or 3b CKD (CMS/HCC) Anemia, unspecified type Chronic pain of left knee History of prostate cancer Dizziness Healthcare maintenance LIPID PANEL, STANDARD Routine 05/09/2024 9:54 AM EDT Essential hypertension Other hyperlipidemia Second degree AV block, Mobitz type I Paroxysmal A-fib (CMS/HCC) Stage 3 chronic kidney disease, unspecified whether stage 3a or 3b CKD (CMS/HCC) Anemia, unspecified type Chronic pain of left knee History of prostate cancer Dizziness Healthcare maintenance VITAMIN D,25-OH,TOTAL,IA Routine 05/09/2024 9:54 AM EDT Essential hypertension Other hyperlipidemia Second degree AV block, Mobitz type I Paroxysmal A-fib (CMS/HCC) Stage 3 chronic kidney disease, unspecified whether stage 3a or 3b CKD (CMS/HCC) Anemia, unspecified type Chronic pain of left knee History of prostate cancer Dizziness Healthcare maintenance T4, FREE Routine 05/09/2024 9:54 AM EDT Essential hypertension Other hyperlipidemia Second degree AV block, Mobitz type I Paroxysmal A-fib (CMS/HCC) Stage 3 chronic kidney disease, unspecified whether stage 3a or 3b CKD (CMS/HCC) Anemia, unspecified type Chronic pain of left knee History of prostate cancer Dizziness Healthcare maintenance OCT, OPTIC NERVE - OU - BOTH EYES Routine 05/08/2024 1:00 PM EDT Optic neuropathy, bilateral Primary open angle glaucoma of both eyes, unspecified glaucoma stage ZZZ HISTORICAL HEPATITIS C AB W/REFL TO HCV RNA, QN, PCR Routine 09/15/2021 11:24 AM EDT from Last 3 Months or Most Recently Relevant to Health Maintenance Results * Automated Visual Field, Extended - OU - Both Eyes (06/15/2024 2:30 PM EDT) Teodoro Gonzalezjada Tamica, OD - 06/21/2024 12:14 PM EDT VISUAL FIELD INTERPRETATION Reliability: OD: _Borderline_ (FP: 0% , FN: 25%) OS: _Borderline - significant eye movement during testing, multiple readjustments required causing interruptions (FP: 0%, FN: 10%) Statistical Indices: OD: MD: -4.7 dB, PSD: 5.1 dB OS: MD: -9.0 dB, PSD: 5.4 dB Impression: OD: Some scattered defects, deepest defects are superior temporal - no structural correlation (RNFL/GCL loss is minimal inferior nasal), some shallow peripheral defects mostly inferior. Baseline. OS: Superior arcuate-like defect correlates with inferior nasal RNFL & GCL loss, nasal step could correlate with temporal GCL loss. Baseline. Management Plan: Optic neuropathy OU. RTC for CEE and repeat OCT in 6 months. us Tamica Torres OD OPHTH VISUAL FIELD Final Result * (ABNORMAL) Vitamin D, 25-Hydroxy, Total, Immunoassay (05/09/2024 9:54 AM EDT) Pathologist [facility] Vitamin D 25-OH Total 19.5(L) >30 ng/mL [facility] Comment: Health Based Reference Values*< 20 ??ng/mL ??Rbievjxcu81-12 ng/mL ??Insufficient> 30 ??ng/mL ??Sufficient*Gisele FERMIN. N Engl J Med. 2007;357:266-280There is no well-established upper level of normal vitamin Dlevels. Some laboratories use 50 ng/mL as an upper limit ofnormal. However, toxicity is patient-dependent and may occurat any level. Careful correlation with the patient'spresentation is necessary and, if there is concern forvitamin D toxicity, treatment should be consideredirrespective of the serum level.Care must be taken in interpreting Vitamin D results fromdifferent laboratories and methodologies. ??Published datademonstrated that results from patients undergoinghemodialysis may show a negative bias when tested withvarious automated 25-OH vitamin D assays when compared toLC- MS/MS.When testing samples from patients whose predominant form ofVitamin D is Vitamin D2, such as patients receiving VitaminD2 supplementation, results that are subtherapeutic shouldbe confirmed with another method such as LC-MS/MS. Blood Venous blood specimen / Unknown 05/09/2024 9:54 AM EDT 05/09/2024 11:40 AM EDT Kathryn Bobby LAB BLOOD ORDERABLES Final R esult Performing Organization Address City/[facility]/ZIP Co de Phone Number [facility] [address] [place] [phone] * Vitamin B12 (Cobalamin) and Folate Panel, Serum (05/09/2024 9:54 AM EDT) Vitamin B12 797 200 - 900 pg/mL [facility] Comment:NORMAL 200-900 PG/ML INDETERMINATE 160-199 PG/ML DEFICIENT < 160 PG/ML Folate 12.6 > or = 4.0 ng/mL [facility] Comment:Reference Values:> o r = 4.0 ng/mL< 4.0 ng/mL suggests folate deficiency Methotrexate, aminopterin and folinic acid(leucovorin) are chemotherapeutic agents whose molecularstructures are similar to folate; therefore, the Architectfolate assay cannot be used for patients using these drugs. Blood 05/09/2024 9:54 AM EDT 05/09/2024 11:40 AM EDT Kathryn Bobby LAB BLOOD ORDERABLES Final R esult Performing Organization Address [facility] Co de Phone Number [facility] [address] [place] [phone] * Albumin, Random Urine W/Creatinine (05/09/2024 9:54 AM EDT) Creatinine, Urine 116.45 mg/dL [facility] Microalbumin Urine 27.0 mg/L [facility] Microalbum Creatinine Ratio Ur 23.1 <30 ug/mg cr [facility] Comment:Albumin/Creatinine R atio Reference Ranges: Normal: < 30 ug/mg creatinine Microalbuminuria: 30 - 300 ug/mg creatinineClinical Albuminuria: > 300 ug/mg creatinine Urine (Urine, Random) 05/09/2024 9:54 AM EDT 05/09/2024 11:18 AM EDT us Kathryn Kanu [facility] URINE ORDERABLES Final R esult Performing Organization Address City/[facility]/ZIP Co de Phone Number [facility] [address] [place] [phone] * (ABNORMAL) CBC auto differential (05/09/2024 9:54 AM EDT) Neutrophils Percent Auto 53.3 45 - 73 % [facility] Imm Gran Pct Auto 0.3 0.0 - 0.4 % [facility] Lymphocytes Percent Auto 31.2 20 - 40 % [facility] Monocytes Percent Auto 10.0 2 - 11 % [facility] Eosinophils Percent Auto 4.5(H) 0 - 4 % [facility] Basophils Percent Auto 0.7 0 - 2 % [facility] Neutrophils Absolute Auto 3.8 2.0 - 8.3 x10*3/uL [facility] Imm Gran Abs Auto 0.02 0.00 - 0.03 X10*3/uL [facility] Lymphocytes Absolute Auto 2.2 1.2 - 4.9 X10*3/uL [facility] Monocytes Absolute Auto 0.7 0.1 - 1.2 X10*3/uL [facility] Eosinophils Absolute Auto 0.3 0.0 - 0.4 X10*3/uL [facility] Basophils Absolute Auto 0.1 0.0 - 0.2 X10*3/uL [facility] Blood Venous blood specimen / Unknown 05/09/2024 9:54 AM EDT 05/09/2024 11:18 AM EDT Tamica Torres OD LAB BLOOD ORDERABLES Final Resu lt Performing Organization Address [facility]/ZIP Co de Phone Number [facility] [address] [place] [phone] * Methylmalonic Acid (05/09/2024 9:54 AM EDT) Methylmalonic Acid 197 69 - 390 nmol/L [facility] Comment: Serum methylmalonic acid (MMA) levels are used todiagnose and monitor several rare inborn errors ofmetabolism, including methylmalonic aciduria. Theenzymatic conversion of MMA to succinic acid requiresvitamin B12 (adenosyl-cobalamin) as a cofactor. SerumMMA levels are also used for assessing functionalvitamin B12 deficiency. Vitamin B12 is essential forfetal neurodevelopment, particularly early inpregnancy. Undiagnosed maternal vitamin B12 deficiencymay be associated with adverse / outcomes,such as neural tube defects and intrauterine growthrestriction.[employer] utilized Multi-Modal Decomposition(MMD) analysis to establish first and second trimester-specific MMA reference intervals in , as givenbelow:MMA, First trimester (<13 wks gestation): 58-167 nmol/LMMA, Second trimester (13-23 wks gestation):63-241 nmol/LThis test was developed and its analytical performancecharacteristics have been determined by [employer]. It has not been cleared or approved by theFDA. This assay has been validated pursuant to the CLIAregulations and is used for clinical purposes.THIS TEST WAS PERFORMED AT:[id number] [place], [place] ??[id number] OTERO MD,PHD Blood Venous blood specimen / Unknown 05/09/2024 9:54 AM EDT 05/09/2024 11:40 AM EDT us Tamica Torres OD LAB BLOOD ORDERABLES Final Resu lt [facility] [address] [place] [phone] * (ABNORMAL) Iron And Total Iron Binding Capacity (05/09/2024 9:54 AM EDT) Iron 48 45 - 160 mcg/dL [facility] Total Iron Binding Capacity 201(L) 228 - 428 mcg/dL [facility] Percent Iron Saturation 24 15 - 50 % [facility] Unsaturated Iron Binding 153 ug/dL [facility] Blood Venous blood specimen / Unknown 05/09/2024 9:54 AM EDT 05/09/2024 11:40 AM EDT Kathryn Bobby DO LAB BLOOD ORDERABLES Final R esult Performing Organization Address City/[facility]/ZIP Co de Phone Number [facility] [address] [place] [phone] * (ABNORMAL) CBC (05/09/2024 9:54 AM EDT) White Blood Count 7.1 4.8 - 10.8 X10*3/uL [facility] Red Blood Count 3.55(L) 4.60 - 5.80 X10*6/uL [facility] Hemoglobin 10.5(L) 14.0 - 18.0 g/dl [facility] Hematocrit 33.3(L) 42.0 - 52.0 % [facility] Mean Corpuscular Volume 93.8 80.0 - 98.0 fL [facility] Mean Corpuscular Hemoglobin 29.6 27.0 - 33.0 pg [facility] Mean Corpuscular HGB Conc 31.5 31.0 - 36.0 g/dl [facility] Red Cell Distribution Width 14.1 11.0 - 16.0 % [facility] Platelet Count 181 160 - 400 X10*3/uL [facility] Mean Platelet Volume 11.4 9.4 - 12.4 fL [facility] NRBC Pct Auto 0.0 0.0 - 0.2 /100WBC [facility] NRBC Abs Auto 0.000 0.0 - 0.012 X10*3/uL [facility] Blood Venous blood specimen / Unknown 05/09/2024 9:54 AM EDT 05/09/2024 11:18 AM EDT Kathryn Bobby DO LAB BLOOD ORDERABLES Final R esult [facility] [address] [place] [phone] * TSH (05/09/2024 9:54 AM EDT) Thyroid Stimulating Hormone 2.89 0.32 - 4.0 uIU/mL [facility] Comment:Note: A sustained TS H level above 2.5 uIU/mL may warrant further investigation. TSH 3rd Generation ([facility]) Blood Venous blood specimen / Unknown 05/09/2024 9:54 AM EDT 05/09/2024 11:40 AM EDT Kathryn Bobby LAB BLOOD ORDERABLES Final R esult Performing Organization Address City/[facility]/ZIP Co de Phone Number [facility] [address] [place] [phone] * T4, Free (05/09/2024 9:54 AM EDT) Free T4 (Free Thyroxine) 0.99 0.71 - 1.85 ng/dL [facility] Blood Venous blood specimen / Unknown 05/09/2024 9:54 AM EDT 05/09/2024 11:40 AM EDT Kathryn Bobby DO LAB BLOOD ORDERABLES Final R esult [facility] [address] [place] [phone] * Hemoglobin A1c (05/09/2024 9:54 AM EDT) Hemoglobin A1c 5.4 <6.0 % [facility] Comment:Hemoglobin A1C Refer ence Range Adults: 4.8 - 6.0 % Non diabetic: < 6.0 % Goal: < 7.0 %Additional Action Suggested: > 8.0 %Note: Hemoglobin A1c results are invalid for patients with abnormal amounts of HbF. Blood transfusions may impact the HbA1c concentration in the patient sample. Estimated Average Glucose 108 mg/dL [facility] Comment:eAG = Estimated ave rage glucose which is %A1C expressed asaverage glucose, using the formula of the [id number] Glucose study (ADAG), Diabetes Care, Vol.31,#8,Sep. 2007 Blood Venous blood specimen / Unknown 05/09/2024 9:54 AM EDT 05/09/2024 11:18 AM EDT us Kathryn Kanu DO LAB BLOOD ORDERABLES Final R esult [facility] [address] [place] [phone] * Ferritin (05/09/2024 9:54 AM EDT) Ferritin 185 20 - 250 ng/mL [facility] Blood Venous blood specimen / Unknown 05/09/2024 9:54 AM EDT 05/09/2024 11:40 AM EDT Kathryn Bobby DO LAB BLOOD ORDERABLES Final R esult Performing Organization Address [facility] Co de Phone Number [facility] [address] [place] [phone] * Hepatic Function Panel (05/09/2024 9:54 AM EDT) Bilirubin, Direct 0.1 0.0 - 0.5 mg/dL [facility] Blood Venous blood specimen / Unknown 05/09/2024 9:54 AM EDT 05/09/2024 11:40 AM EDT us Kathryn Kanu DO LAB BLOOD ORDERABLES Final R esult Performing Organization Address City/[facility]/ZIP Co de Phone Number [facility] [address] [place] [phone] * (ABNORMAL) Lipid Panel, Standard (05/09/2024 9:54 AM EDT) Triglycerides 88 <150 mg/dL [facility] Comment:Desirable Triglyceri de: less than 150 mg/dLBorderline High Triglyceride 150-199 mg/dLHigh Triglyceride: 200-499 mg/dLVery High Triglyceride: greater than or equal to 5OO mg/dL Cholesterol 132 <200 mg/dL [facility] Comment:Desirable Cholestero l: less than 200 mg/dLBorderline High Cholesterol: 200-239 mg/dLHigh Cholesterol: greater than 239 mg/dL LDL Cholesterol Calculated 78 <100 mg/dL [facility] Comment:Desirable LDL: less than 100 mg/dLNear Optimal/Above Optimal LDL: 110- 129 mg/dLBorderline High LDL: 130-159 mg/dLHigh LDL: 160-189 mg/dLVery High LDL: greater than or equal to 190 mg/dL HDL Cholesterol 37(L) >40 mg/dL [facility] Comment:Desirable HDL: great er than 40 mg/dL Note: This HDL assay may give artificially low results in patients with liver disease. Blood Venous blood specimen / Unknown 05/09/2024 9:54 AM EDT 05/09/2024 11:40 AM EDT us Kathryn Bobby DO LAB BLOOD ORDERABLES Final R esult [facility] [address], [place] [phone] * (ABNORMAL) Comprehensive metabolic panel (05/09/2024 9:54 AM EDT) Sodium 143 135 - 145 mmol/L [facility] Potassium 4.6 3.3 - 5.1 mmol/L [facility] Chloride 114(H) 96 - 108 mmol/L [facility] Carbon Dioxide 23 22 - 29 mmol/L [facility] Anion Gap 11(L) 12 - 20 [facility] Urea Nitrogen (BUN) 23(H) 9 - 16 mg/dL [facility] Creatinine, Serum 1.31 0.5 - 1.4 mg/dL [facility] Estimated Glomerular Filt Rate 53 [facility] Comment:Chronic Kidney Disea se: Estimated GFR < 60 mL/min/1.48k4Mejfan Kidney Disease: Estimated GFR < 15 mL/min/1.73m2 Glucose 87 60 - 115 mg/dL [facility] Calcium 9.1 8.4 - 10.2 mg/dL [facility] Bilirubin, Total 0.4 0.0 - 1.0 mg/dL [facility] Aspartate Amino Transferase 28 5 - 37 U/L [facility] Alanine Aminotransferase 26 0 - 40 U/L [facility] Total Protein 7.5 6.5 - 8.0 g/dL [facility] Albumin Level 4.1 3.5 - 5.0 g/dL [facility] Alkaline Phosphatase 113 39 - 117 U/L [facility] Blood Venous blood specimen / Unknown 05/09/2024 9:54 AM EDT 05/09/2024 11:40 AM EDT us Tamica Torres OD LAB BLOOD ORDERABLES Final Resu lt [facility] [address] [place] [phone] * OCT, Optic Nerve - OU - Both Eyes (05/08/2024 1:00 PM EDT) Narrative Tamica Torres, OD - 05/09/2024 12:33 PM EDT OCT INTERPRETATION Optical Coherence Tomography Interpretation Report RNFL Reliability RNFL: OD: SS 40, ok quality, one motion defect inferiorly OS: SS 37, ok quality Measurements RNFL: Avg RNFL thickness OD: ??57 microns OS: ??47 microns Test findings RNFL: RNFL OD: Thin inferior temporal and superior temporal. Baseline RNFL OS: Diffusely thin from 4:00 to 10:00, thin at 2:00. Baseline. Optical Coherence Tomography Interpretation Report GCL: Reliability GCL: OD: 43, adequate quality OS: 41, ok quality Measurements GCL: Avg GCL thickness OD: ??53 microns OS: ??50 microns Test findings GCL: GCL OD: Thin superior nasal and inferior temporal. Baseline. GCL OS: Thin nasally, superior and inferior to horizontal meridian. Borderline thin superior/inferior. Thin inferior temporal. Baseline. Impression and Plan: OD: RNFL thinning pattern consistent with glaucomatous damage however GCL pattern less consistent with glaucoma, more consistent with optic neuropathy. OS: RNFL/GCL thinning pattern consistent with optic neuropathy. RTC 1 month for visual field (VF) us Tamica Torres OD OPHTH TOMOGRAPHY Final Result * HEPATITIS C AB W/REFL TO HCV RNA, QN, PCR (09/15/2021 11:24 AM EDT) HEPATITIS C ANTIBODY NON-REACT HERSON NON-REACT HERSON [facility] INDEX 0.12 <1.00 [facility] Comment: ?? HCV antibody was non-reactive. There is no laboratory ?? evidence of HCV infection. ?? In most cases, no further action is required. However, if recent HCV exposure is suspected, a test for HCV RNA (test code 28473) is suggested. ?? For additional information please refer to http://education.[employer]/faq/KFM50n7 (This link is being provided for informational/ educational purposes only.) ?? 09/15/2021 11:2 4 AM EDT us Kathryn Bobby DO HISTORICAL/NON ORDERABLE LAB S Final Result [facility] [address] from Last 3 Months or Most Recently Relevant to Health Maintenance Insurance [address] [place] [address] MEDICARE [facility] STANDARD Care Teams Road Manager Relationship Specialty Start Date End Date Kathryn Bobby DO [address] [place] [id number] PCP - General Family Medicine 12/19/12 Yuridia Myles needle loom tender 03/15/23
--- OUTSIDE RECORDS SUMMARY | 2024-06-22 11:22 | XMS_ITS | Encounter Summary ---
Author Organization [employer] Address [address] [place] [address] Care Team Providers Care Concaving Machine Operator Name Role Phone Kathryn Bobby DO Primary Care Provider [phone] Reason for Visit * Reason Onset Date Comments Med Refill 06/20/2024 Encounter Details Date Type Department Care Team (Late st Contact Info) Description 06/20/2024 Refill [facility] [address] [place], [place] [phone] Kathryn Bobby DO [address] [place], [place] [phone] Hyperlipidemia LDL goal <130 Social History Tobacco Use Types Packs/Day Years [...] AM EDT documented as of this encounter Miscellaneous Notes * Telephone Encounter - Layla Doran RN - 06/20/2024 2:28 PM EDT Rx pended * Telephone Encounter - Meghna Major - 06/20/2024 2:15 PM EDT TC from pt requesting medication refill. Medications needing refill : atorvastatin (Lipitor) 20 MG tablet To be sent to: [id number] [place] [address] documented in this encounter Plan of Treatment Not on file documented as of this encounter Visit Diagnoses Diagnosis Hyperlipidemia LDL goal <130 Other and unspecified hyperlipidemia documented in this encounter Additional Health Concerns Assessment Noted Time PHQ-9 Depression Total Score: 0 11/04/19 9:19 AM EDT documented as of this encounter Care Teams Concaving Machine Operator Relationship Specialty Start Date End Date Kathryn Bobby DO [address] [place] [id number] PCP - General Family Medicine 12/19/12 Yuridia Myles RN Care Manager 03/15/23 documented as of this encounter
--- OUTSIDE RECORDS SUMMARY | 2024-06-22 11:22 | XMS_ITS | Encounter Summary ---
Author Organization [employer] Address [address] [place] [address] Care Team Providers Care Contact Lens Lathe Operator Name Role Phone Kathryn Bobby DO Primary Care Provider [phone] Reason for Visit * Reason Comments Med Refill Encounter Details Date Type Department Care Team (Late st Contact Info) Description 06/19/[address] [facility] [address] [place], [place] [phone] Kathryn Bobby DO [address] [place], [place] [phone] Social History Tobacco Use Types Packs/Day Years [...] as of this encounter Plan of Treatment Not on file documented as of this encounter Visit Diagnoses Not on filedocumented in this encounter Additional Health Concerns Assessment Noted Time PHQ-9 Depression Total Score: 0 11/04/19 23 9:19 AM EDT documented as of this encounter Care Teams Contact Lens Lathe Operator Relationship Specialty Start Date End Date Kathryn Bobby DO [address] [place] [id number] PCP - General Family Medicine 12/19/12 Yuridia Myles trawl net maker 03/15/23 documented as of this encounter
[2024-06-22 11:52] LABS: Anion Gap 12 (12-20); Blood Urea Nitrogen 35 mg/dL (9-16); Calcium 9.2 mg/dL (8.4-10.2); Carbon Dioxide 21 mmol/L (22-29); Chloride 112 mmol/L (96-108); Estimated Glomerular Filt Rate 52; Glucose Random 80 mg/dL (60-115); Potassium 4.6 mmol/L (3.3-5.1); Sodium 140 mmol/L (135-145)
[2024-06-22 12:30] LABS: Folate 9.7 ng/mL (> or = 4.0); Vitamin B12 1376 pg/mL (200-900)
[2024-06-22 12:31] LABS: Prostate Specific Antigen 0.32 ng/mL (<0.05-4.0)
[2024-06-25 17:43] LABS: Homocysteine 15.5 umol/L (<11.4)
== END 2024-06-22 10:39 | disposition home or self-care (01) ==
LOC: HO.LAB 10:38
PROVIDERS: Optometrist; PCP Family Medicine; Visit Provider Nurse Practitioner Family
DX: Z00.00 Encounter for general adult medical examination without abnormal findings (principal); I10 Essential (primary) hypertension; E78.49 Other hyperlipidemia; I44.1 Atrioventricular block, second degree; I48.0 Paroxysmal atrial fibrillation; N18.30 Chronic kidney disease, stage 3 unspecified; D64.9 Anemia, unspecified; M25.562 Pain in left knee; G89.29 Other chronic pain; Z85.46 Personal history of malignant neoplasm of prostate; R42 Dizziness and giddiness; C61 Malignant neoplasm of prostate; N35.919 Unspecified urethral stricture, male, unspecified site; H46.9 Unspecified optic neuritis
CPT/HCPCS: 36415; 80048; 82607; 82746; 83090; 84153